=== PATIENT | male | born 1985 | race Caucasian/White ===

== ENCOUNTER 2020-11-04 20:12 | Emergency (ER) | payer SELFPAY ==
--- NOTE | ~2020-11-04 | XR_ITS ---
EXAMINATION: XR ANKLE, RIGHT CLINICAL INFORMATION: Pain status post trauma COMPARISON: None TECHNIQUE: AP, lateral, and mortise views of the right ankle. FINDINGS: The bones and soft tissues are normal. No fracture. Alignment is anatomic. Joint spaces are maintained. No joint effusion. XR/XR ankle RT min 3V IMPRESSION: Normal right ankle.
[2020-11-04 20:15] VITALS: BP 140/77; PULSE 77; RESP 18; TEMP 36.6; O2SAT 98; BMI 29.6
[2020-11-04] MEDS: Ibuprofen 600 MG TABLET PO (21:13)
--- NOTE | 2020-11-04 21:23 | ED.LOWEXIN ---
HPI - Extremity Injury (Lower) General Chief Complaint: Extremity Injury, Lower Stated Complaint: foot pain Time Seen by Provider: 11/04/20 21:17 Source: patient Mode of arrival: wheelchair Limitations: no limitations History of Present Illness HPI Narrative: Patient comes emergency room complaining right ankle pain. Patient states earlier today he was in [place] tr[place] park, missed a step, sprain and ankle. Patient has been unable to bear weight since then. Complaining of localized pain and swelling. Patient denies hitting his head, no loss of consciousness Related Data Previous Rx's Medication Instructions Recorded ibuprofen 800 mg PO TID PRN #10 tab 11/04/20 Allergies Allergy/AdvReac Type Severity Reaction Status Date / Time No Known Allergies Allergy Verified 11/04/20 21:33 seasonal Allergy Unknown Unknown Uncoded 11/04/20 21:33 Review of Systems Review of Systems: Constitutional : No Weight loss, No Fever, No Chills, No Night Sweats, No Fatigue, No Malaise ENT/Mouth : No Hearing loss, No Ear Pain, No Nasal Congestion, No Sinus Pain, No Hoarseness, No sore throat, No Rhinorrhea, No Swallowing Difficulty Eyes: No Eye Pain, No Swelling, No Redness, No Foreign Body, No Discharge, No Vision Changes Cardiovascular : No Chest Pain, No SOB, No Dyspnea on Exertion, No Orthopnea, No Edema, No Palpitations Respiratory : No Cough, No Sputum, No Wheezing, No Smoke Exposure, No Dyspnea Gastrointestinal : No Nausea, No Vomiting, No Diarrhea, No Constipation, No abdominal Pain, No Hematochezia, No Melena Genitourinary : no irregular bleeding, No Dysuria, No Urinary Frequency, No Hematuria, No Urinary Incontinence, No Urgency, No Flank Pain, No Urinary Flow Changes, No Hesitancy Musculoskeletal : Complaining of right ankle pain and swelling Skin : No Skin Lesions, No rash Neuro : No Weakness, No Numbness, No Paresthesias, No Loss of Consciousness, No Dizziness, No Headache Psych : No Anxiety/Panic, No Depression, No SI/HI/AH/VH, No Social Issues, Heme/Lymph: No Bruising, No Bleeding,No Lymphadenopathy Endocrine : No Polyuria, No Polydipsia, No Temperature Intolerance PMFSH Past Medical History Medical History No known health problems Surgical History History of appendectomy Social History Social History Advance Directives: No Advance Directives Information Provided: No Physical Exam Vital Signs: Vital Signs: Last Vital Signs Temp 98 F 11/04/20 20:15 Pulse 77 11/04/20 20:15 Resp 18 11/04/20 20:15 BP 140/77 H 11/04/20 20:15 Pulse Ox 98 11/04/20 20:15 Body Mass Index 29.6 Appearance: Alert. Oriented X3. No acute distress. Eyes: Pupils equal, round and reactive to light. ENT: Pharynx normal. Neck: Normal inspection. Neck supple. No lymph nodes noted. No crepitus CVS: Normal heart rate and rhythm. Pulses normal. Normal S1 and S2 Respiratory: No respiratory distress. Breath sounds normal. No Wheezing. No rales Abdomen: Soft and nontender. No rigidity. No distention. good BS x4 Skin: Skin warm and dry. Normal skin color. Normal skin turgor. Extremities: No lower extremity edema. Plus five palpable pedal pulses bilaterally, swelling on the lateral malleolus and pain to touch. Patient unable to bear weight. Neuro: Oriented X 3. No motor deficit. No sensory deficit. Moving all extermities. No slurred speech. Course Course Course Narrative: I discussed with the patient that he does not have a fracture, patient has likely a significant sprain. Patient instructed to follow-up with his primary care physician, patient also provided with the phone number for Orthopedics. Patient's foot was Ye[place] wrapped, provided with crutches. MDM - Extremity Injury (Lower) Imaging Data Right ankle x-ray: Radiologist's impression: The bones and soft tissues are normal. No fracture. Alignment is anatomic. Joint spaces are maintained. No joint effusion. XR/XR ankle RT min 3V IMPRESSION: Normal right ankle. Discharge Plan Discharge Clinical Impression: Ankle sprain and strain Patient Disposition: Home, Self-Care Instructions: Ankle Sprain (ED) Additional Instructions: Apply ice to your ankle for 15 minutes every 2 hours while you are awake. Actually ice is not in direct contact with the skin. Please follow-up with your PCP and Orthopedics Prescriptions: New ibuprofen 800 mg tablet 800 mg PO TID PRN (Reason: pain) Qty: 10 RF: 0 Referrals: Fay Zimmer PA-C [Physician Sewing Machine Maintenance Mechanic] - 2 days
--- NOTE | 2020-11-04 21:35 | PC.NURSE ---
PT EVALED BY DR RAYMOND.
--- NOTE | 2020-11-04 21:52 | PC.NURSE ---
POSTERIOR SHORT LEG SPLINT APPLIED TO R FOOT.
== END 2020-11-04 22:13 | disposition home or self-care (01) ==
PROVIDERS: Emergency Provider Emergency Medicine
DX: S93.401A Sprain of unspecified ligament of right ankle, initial encounter (principal); V00.118A Other in-line roller-skate accident, initial encounter; M25.571 Pain in right ankle and joints of right foot; Y93.44 Activity, trampolining; Y92.9 Unspecified place or not applicable; Y99.8 Other external cause status
CPT/HCPCS: 73610; 99283

== ENCOUNTER → 2020-11-12 12:30 | Outpatient (BNVA) | payer SELFPAY | PROVIDERS: Visit Provider Physician Assistant | DX: S93.401A Sprain of unspecified ligament of right ankle, initial encounter (principal) | CPT/HCPCS: 99202 ==

== ENCOUNTER 2020-11-20 11:29 | Outpatient (REF) | payer SELFPAY ==
--- NOTE | ~2020-11-20 | XR_ITS ---
EXAMINATION: Right elbow and right wrist x-ray CLINICAL INFORMATION: Pain and right hand COMPARISON: None TECHNIQUE: AP, lateral, and oblique views of the right elbow. 4 views right wrist FINDINGS: Right elbow: There is no visible acute fracture, dislocation or subluxation seen. No bony erosive changes. The soft tissues are normal. Right wrist: There is no visible acute fracture, dislocation or subluxation. No bony erosive changes seen. There is no fracture involving the scaphoid bone either. XR/XR elbow RT min 3V IMPRESSION: Unremarkable right elbow and unremarkable right wrist
--- NOTE | ~2020-11-20 | XR_ITS ---
EXAMINATION: Right elbow and right wrist x-ray CLINICAL INFORMATION: Pain and right hand COMPARISON: None TECHNIQUE: AP, lateral, and oblique views of the right elbow. 4 views right wrist FINDINGS: Right elbow: There is no visible acute fracture, dislocation or subluxation seen. No bony erosive changes. The soft tissues are normal. Right wrist: There is no visible acute fracture, dislocation or subluxation. No bony erosive changes seen. There is no fracture involving the scaphoid bone either. XR/XR wrist RT w scaphoid IMPRESSION: Unremarkable right elbow and unremarkable right wrist
== END 2020-11-20 11:30 | disposition home or self-care (01) ==
LOC: HO.HOSX 11:29
PROVIDERS: Visit Provider Orthopaedic Surgery
DX: M25.531 Pain in right wrist (principal); M25.521 Pain in right elbow; M77.11 Lateral epicondylitis, right elbow
CPT/HCPCS: 73080; 73110; 99202

== ENCOUNTER 2022-10-26 15:11 | Emergency (ER) | payer BC, SELFPAY ==
--- NOTE | ~2022-10-26 | XR_ITS ---
EXAMINATION: XR ELBOW, RIGHT CLINICAL INFORMATION: Pain COMPARISON: None available. TECHNIQUE: AP, lateral, and oblique views of the right elbow. FINDINGS: The bones and soft tissues are normal. No fracture or joint effusion. Alignment is anatomic. Joint spaces are maintained. XR/XR elbow RT min 3V IMPRESSION: No fracture or dislocation. MRI could be utilized to assess for possible soft tissue derangements if clinically indicated.
[2022-10-26 16:03] VITALS: BP 136/75; PULSE 59; RESP 18; TEMP 37; O2SAT 97; BMI 27.3
--- NOTE | 2022-10-26 18:55 | PC.NURSE ---
pt fully ambulatory to exam room awaiting provider
--- NOTE | 2022-10-26 18:56 | ED_ITS ---
HPI - Extremity Problem General Chief complaint: Extremity Injury, Upper Stated complaint: right arm injury playing baseball Time Seen by Provider: 10/26/22 18:56 Source: patient Mode of arrival: ambulatory Limitations: no limitations History of Present Illness HPI Narrative: Patient complaining of pain in right elbow in the medial aspect after playing baseball yesterday felt like his elbow popped but now it is back to normal but having the pain specially on the medial aspect, no other injury Related Data Previous Rx's Medication Instructions Recorded ibuprofen 800 mg tablet 800 mg PO TID PRN pain #10 tabs 11/04/20 ibuprofen 600 mg tablet 600 mg PO Q6H PRN fever or pain 10/26/22 #30 tabs Allergies Allergy/AdvReac Type Severity Reaction Status Date / Time No Known Allergies Allergy Verified 10/26/22 16:03 seasonal Allergy Unknown Unknown Uncoded 11/20/20 13:03 Review of Systems Review of Systems: Yes all other systems are reviewed and are negative PMFSH Past Medical History Medical History No known health problems Surgical History History of appendectomy Social History Social History Current occupational status: unemployed 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 Tenderness in medial epicondyle area increases on wrist flexion Medical Decision Making Medical Decision Making MDM Narrative: Patient clinically with medial epicondylitis x-ray negative discharge patient home with sling and ibuprofen Discharge Plan Discharge Clinical Impression: Medial epicondylitis of right elbow Patient Disposition: Home, Self-Care Instructions: Elbow Sprain (ED) Additional Instructions: Rest the right elbow,wear the sling and use elbow brace Ibuprofen for pain Prescriptions: New ibuprofen 600 mg tablet 600 mg PO Q6H PRN (Reason: fever or pain) Qty: 30 0RF No Action ibuprofen 800 mg tablet 800 mg PO TID PRN (Reason: pain) Qty: 10 0RF Stand Alone Forms: Work/School Release
[2022-10-26] MEDS: Ibuprofen 600 MG TABLET PO (19:25)
== END 2022-10-26 20:22 | disposition home or self-care (01) ==
PROVIDERS: Emergency Provider Internal Medicine
DX: M77.01 Medial epicondylitis, right elbow (principal); M25.521 Pain in right elbow
CPT/HCPCS: 73080; 99283

== ENCOUNTER 2022-12-11 16:37 | Emergency (ER) | payer BC, SELFPAY ==
[2022-12-11 16:44] VITALS: BP 124/69; PULSE 58; RESP 18; TEMP 36.9; O2SAT 97; BMI 28.1
--- NOTE | 2022-12-11 16:48 | ED_ITS ---
HPI - Eye Problem General Chief complaint: Eye Problems Stated complaint: left eye redness and swelling Related Data Previous Rx's Medication Instructions Recorded ibuprofen 800 mg tablet 800 mg PO TID PRN pain #10 tabs 11/04/20 ibuprofen 600 mg tablet 600 mg PO Q6H PRN fever or pain 10/26/22 #30 tabs Allergies Allergy/AdvReac Type Severity Reaction Status Date / Time No Known Allergies Allergy Verified 10/26/22 16:03 seasonal Allergy Unknown Unknown Uncoded 11/20/20 13:03 PMFSH Past Medical History Medical History No known health problems Surgical History History of appendectomy Social History Social History Advance Directives: No Advance Directives Information Provided: No Current occupational status: unemployed 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 Deferred additional HPI, ROS, PE to primary provider. 37 yo male healthy, does not use contacts/glasses here with left eye redness/swelling, irritation/itching today. Unsure if there was anything in the eye as he had a FB sensation. No vision changes. Will need eye exam. VSS Discharge Plan Discharge Clinical Impression: Acute eye pain Patient Disposition: Elopement Prescriptions: No Action ibuprofen 800 mg tablet 800 mg PO TID PRN (Reason: pain) Qty: 10 0RF ibuprofen 600 mg tablet 600 mg PO Q6H PRN (Reason: fever or pain) Qty: 30 0RF Interventions: ED Discharge Assessment Last Done: 12/11/22 21:46 Discharge Date/Time: 12/11/22 21:46
== END 2022-12-11 21:46 | disposition left against medical advice (07) ==
PROVIDERS: Emergency Provider Emergency Medicine
DX: H57.12 Ocular pain, left eye (principal)
CPT/HCPCS: 99282

== ENCOUNTER 2024-01-14 07:23 | Emergency (ER) | payer BC, SELFPAY ==
--- NOTE | ~2024-01-14 | XR_ITS ---
EXAMINATION: XR KNEE, RIGHT CLINICAL INFORMATION: Knee pain COMPARISON: None available. TECHNIQUE: Four views of the right knee. FINDINGS: No fracture or joint effusion. Alignment is anatomic. Joint spaces are maintained. On the AP view, there is a small 2.7 mm calcified opacity seen ejecting just on top of the medial tibial tubercle. No chondrocalcinosis. XR/XR knee RT 3V IMPRESSION: 1. No acute fracture or dislocation. 2. Small 2.7 mm calcified opacity seen ejecting just on top of the medial tibial tubercle. This may represent a small intra-articular free osseous body.
[2024-01-14 07:26] VITALS: BP 144/69; PULSE 55; RESP 19; O2SAT 99; BMI 27.3
[2024-01-14 07:59] VITALS: BP 135/66; PULSE 52; RESP 14; TEMP 36.5; O2SAT 100
--- NOTE | 2024-01-14 08:13 | ED.GENADULT ---
HPI - General Adult General Chief complaint: Extremity Injury, Lower Stated complaint: r knee inj Time Seen by Provider: 01/14/24 08:12 Source: patient Mode of arrival: ambulatory Limitations: no limitations History of Present Illness ED Provider: Misa Carrasquillo PA-C HPI narrative: Patient is a 38 year old assigned male at with no reported medical history presenting to the emergency department today with right knee pain. Patient states that yesterday he slid playing baseball and he felt a large pop in his right knee. Patient states that the inside portion of his knee hurts the most. Patient denies any dizziness, lightheadedness, abdominal pain, nausea, vomiting, fever, chills, blurry vision, double vision, loss of vision, chest pain, difficulty breathing, shortness of breath, back pain, night sweats, pain with urination, increased urinary frequency, increased urinary urgency, blood in his urine or stool, syncope or a near syncopal episode, bowel incontinence, bladder incontinence, or any other complaints at this time. Onset (ago): day(s) (1) Location: right and lower extremity Radiation: non-radiation Severity: mild Severity scale (1-10): 3 Quality: aching and dull Pain Consistency: constant Relieving factors: none Exacerbating factors: none Associated symptoms: denies other symptoms Treatments prior to arrival: none Related Data Previous Rx's ?Medication ?Instructions ?Recorded ibuprofen 800 mg tablet 800 mg PO TID PRN pain #10 tabs 11/04/20 ibuprofen 600 mg tablet 600 mg PO Q6H PRN fever or pain 10/26/22 #30 tabs Allergies Allergy/AdvReac Type Severity Reaction Status Date / Time No Known Allergies Allergy Verified 01/14/24 07:27 seasonal Allergy Unknown Unknown Uncoded 01/14/24 07:27 Review of Systems Constitutional: Constitutional: Reports no additional constitutional complaints, Denies chills, Denies fever(s) and Denies night sweats Eyes: Eyes: Reports no additional eye complaints, Denies blurry vision, Denies change in vision, Denies diplopia, Denies eye discharge, Denies loss of vision and Denies eye pain ENT: Denies dizziness Cardiovascular: Cardiovascular: Reports no additional cardiovascular complaints, Denies chest pain, Denies lightheadedness, Denies Loss of Consciousness and Denies dyspnea Respiratory: Respiratory: Reports no additional respiratory complaints and Denies dyspnea Gastrointestinal: Gastrointestinal: Reports no additional gastrointestinal complaints, Denies abdominal pain, Denies melena, Denies hematochezia, Denies change in bowel habits and Denies change in stool character Genitourinary: Genitourinary: Reports no additional male genitourinary complaints, Denies hematuria, Denies oliguria, Denies difficulty urinating, Denies dysuria, Denies urinary frequency, Denies urinary hesitancy, Denies urinary incontinence and Denies urinary urgency Musculoskeletal: Musculoskeletal: Reports no additional musculoskeletal complaints, Denies numbness and Denies tingling Comments: right knee pain Neurologic: Denies dizziness, Denies loss of vision, Denies numbness and Denies tingling Psychiatric: Psychiatric: Reports no additional psychiatric complaints Endocrine: Endocrine: Reports no additional endocrine complaints Hematologic/Lymphatic: Hematologic/Lymphatic: Reports no additional hematologic/lymphatic complaints Allergic/Immunologic: Allergic/Immunologic: Reports no additional allergic/immunologic complaints PMFSH Past Medical History Attestation statement: The following information was validated with the patient. 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 Physical Exam ED Vital Signs: Vital Signs - 24 hr 01/14/24 07:26 01/14/24 07:59 01/14/24 10:33 Temperature 97.7 F 97.8 F Pulse Rate 55 52 56 Respiratory Rate 19 14 16 Blood Pressure 144/69 H 135/66 136/76 Pulse Oximetry 99 100 100 Oxygen Delivery Method Room Air Room Air Room Air BMI result Body Mass Index 27.3 Const General: cooperative, no acute distress, alert and awake Nutritional Appearance: well nourished Orientation/consciousness: patient oriented x3 Limitations: no limitations HENMT Head: Yes normal to inspection and Yes atraumatic Ears: hearing grossly normal bilaterally and external ears normal General nose exam: Normal external nose present, no nasal discharge noted and no epistaxis Face and sinus: Yes normal facial exam, No abrasion and No laceration Mouth: Normal oral and palatal mucosa present, no drooling and no muffled voice Eyes General: appearance normal, both eyes and all related structures Periorbital: periorbital findings normal Eyelids: Yes eyelids normal Conjunctivae: conjunctivae normal Pupils: Equal, round and reactive pupils present EOM: EOMs intact bilaterally Neck Neck: Yes normal visual inspection, Yes full ROM and Yes no lymphadenopathy Chest Chest palpation & inspection: normal inspection of the chest Resp Effort & Inspection: normal respiratory effort and able to speak in complete sentences GI Inspection: Yes normal to inspection Neuro General: patient oriented x3 and moves all extremities Cranial nerves: Yes Equal, round and reactive pupils present Cognition (Neuro): normal cognition Motor exam (neuro): 5/5 motor strength present throughout Sensory Exam: Normal double simultaneous stimulation for sensation Coordination: [id number] test normal Extrem Other: pain in the right knee with the valgus test, all other special tests normal General: Yes normal to inspection, Yes full ROM and Yes capillary refill normal Psych Appearance: grossly normal Mental Status: mental status grossly normal Affect: normal affect Attitude: cooperative Thought process: Normal thought process present Thought content: Normal thought content present Insight: Good insight present (Psych) Medications Administered Discontinued Medications Generic Name Dose Route Start Last Admin Trade Name Freq PRN Reason Stop Dose Admin Ketorolac Tromethamine 15 mg 01/14/24 09:07 01/14/24 09:15 Ketorolac Tromethamine 15 Mg/Ml Vial IM 01/14/24 09:08 Not Given ONCE ONE Procedures Orthopedic Splinting/Casting Injury #1: Side: right Lower Extremity Injury Location: knee Lower Extremity Immobilizer: knee immobilizer Other Orthopedic Equipment: crutches Medical Decision Making Medical Decision Making [facility] Narrative: Patient is a 38 year old assigned male at with no reported medical history presenting to the emergency department today with right knee pain. Patient's physical exam was as noted in the physical exam portion of this note. Patient's right knee x-ray showed no acute process. Patient's physical exam is concerning for a right MCL injury. I explained my physical exam findings as well as all test results to the patient. I answered all questions asked by the patient. Patient's right knee was placed in a knee immobilizer without incident. Patient's PMS was intact prior to and after knee immbolizer was placed. Patient was given crutches with crutch instructions. I stressed the importance of the patient taking his medication as directed (either prescribed or as the over the counter packaging recommends). I stressed the importance of the patient following up with his primary care provider and an orthopedic provider. I stressed the importance of the patient returning to the emergency department immediately if his symptoms were to worsen or if he were to develop any dizziness, shortness of breath, difficulty breathing, chest pain, blurry vision, loss of vision, nausea, vomiting, abdominal pain, fever, chills, back pain, or any other complaints. Patient verbalized agreement and understanding with this treatment plan and discharge. Differential Diagnosis Differential Diagnoses: The differential diagnosis associated with the presentation includes MCL injury Knee sprain Knee strain Knee pain Admission/Observation Consideration of admission/observation: Escalation of care including admission/observation considered Patient would have been admitted to the hospital had his work up had any findings where hospital admission was appropriate and his clinical presentation warranted hospital admission. Independent Interpretation I performed an independent interpretation of an: Plain X-Ray Interpretation: My interpretation is in agreement with the radiologist's impression of this imaging study. EXAMINATION: XR KNEE, RIGHT CLINICAL INFORMATION: Knee pain COMPARISON: None available. TECHNIQUE: Four views of the right knee. FINDINGS: No fracture or joint effusion. Alignment is anatomic. Joint spaces are maintained. On the AP view, there is a small 2.7 mm calcified opacity seen ejecting just on top of the medial tibial tubercle. No chondrocalcinosis. XR/XR knee RT 3V IMPRESSION: 1. No acute fracture or dislocation. 2. Small 2.7 mm calcified opacity seen ejecting just on top of the medial tibial tubercle. This may represent a small intra-articular free osseous body. Dictated By: Rishabh Ramirez MD Signed By: Electronically signed by Rishabh Ramirez MD 01/14/24 1007 Radiology Impression Discussion of test interpretation with radiology: I have reviewed the radiologist's reading. Discharge Plan Discharge Clinical Impression: Knee sprain Patient Disposition: Home, Self-Care Instructions: Knee Sprain (DC) Additional Instructions: Your x-ray did not show any break/fracture. However, I am concerned you may have injured your right MCL. Follow up with your primary care provider and an orthopedic provider. Return to the emergency department immediately if your symptoms worsen or if you develop any dizziness, shortness of breath, difficulty breathing, chest pain, blurry vision, loss of vision, nausea, vomiting, abdominal pain, fever, chills, back pain, or any other complaints. Prescriptions: No Action ibuprofen 800 mg tablet 800 mg PO TID PRN (Reason: pain) Qty: 10 0RF ibuprofen 600 mg tablet 600 mg PO Q6H PRN (Reason: fever or pain) Qty: 30 0RF Referrals: [facility] [place] Family Medicine [Provider Group] (Call to establish and follow up with a primary care provider. If you already have a primary care provider, please follow up with them.) [facility] [place] [facility] [Provider Group] [facility] [place] [facility] [Provider Group] [facility] [Provider Group] (Call to establish and follow up with an orthopedic provider. ) Stand Alone Forms: Work/School Release Discharge Date/Time: 01/14/24 10:33 Print Language: Honduran
--- NOTE | 2024-01-14 09:16 | PC.NURSE ---
patient refused toradol injection for pain
--- NOTE | 2024-01-14 09:51 | PC.NURSE ---
patient tolerated crutches training and knee immobilizer
[2024-01-14 10:33] VITALS: BP 136/76; PULSE 56; RESP 16; TEMP 36.6; O2SAT 100
== END 2024-01-14 10:33 | disposition home or self-care (01) ==
PROVIDERS: Emergency Provider Emergency Medicine
DX: S83.91XA Sprain of unspecified site of right knee, initial encounter (principal); X50.9XXA Other and unspecified overexertion or strenuous movements or postures, initial encounter; M25.561 Pain in right knee; Y93.64 Activity, baseball; Y92.39 Other specified sports and athletic area as the place of occurrence of the external cause; Y99.9 Unspecified external cause status
CPT/HCPCS: 73562; 99283

== ENCOUNTER 2024-01-15 14:47 | Emergency (ER) | payer BC, SELFPAY ==
[2024-01-15 14:52] VITALS: BP 134/56; PULSE 70; RESP 15; TEMP 36.3; O2SAT 97; BMI 27.4
--- NOTE | 2024-01-15 14:54 | ED_ITS ---
HPI - General Adult General Chief complaint: Recheck/Abnormal Lab/Rx Stated complaint: recheck r leg Time Seen by Provider: 01/15/24 15:52 Source: patient Mode of arrival: ambulatory Limitations: no limitations History of Present Illness ED Provider: Jeri LORENZO HPI narrative: 38-year-old male presents with right knee pain, patient reports that on 01/14/2024 he sustained a fall while playing baseball, slid into a base, since then has been having right knee pain, swelling. Pain is worse with movement, weight-bearing and range of motion better at rest. No numbness or tingling. Does report worsening pain. Reports the reason he came today as he received a phone call from the hospital, they spoke to him about his injury and they told him if his pain is worsening he should seek further intervention and this is why he came in. He has an appointment scheduled with Orthopedics on 01/26/2024 however he does not feel like he can wait that long secondary to pain. Pain is 10/10. Reports ibuprofen is not helping. Reports he does not do well with Toradol. Denies new injury, numbness, tingling, fevers, chills, nausea, vomiting, abdominal pain home chest pain and shortness of breath. Related Data Previous Rx's ?Medication ?Instructions ?Recorded ibuprofen 800 mg tablet 800 mg PO TID PRN pain #10 tabs 11/04/20 ibuprofen 600 mg tablet 600 mg PO Q6H PRN fever or pain 10/26/22 #30 tabs morphine 15 mg immediate release 15 mg PO Q6H PRN pain 5 days #10 01/15/24 tablet tabs Allergies Allergy/AdvReac Type Severity Reaction Status Date / Time No Known Allergies Allergy Verified 01/15/24 14:57 seasonal Allergy Unknown Unknown Uncoded 01/14/24 07:27 Review of Systems Review of Systems: Yes all other systems are reviewed and are negative PMFSH Past Medical History Attestation statement: The following information was validated with the patient. 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 Oriented X3.? No acute distress.? Head: Normocephalic, atraumatic, no step-offs or deformities Eyes: Pupils equal, round and reactive to light.? Neck: Normal inspection.? Neck supple.? CVS: ? Pulses normal.? Respiratory: No respiratory distress.? Skin: Skin warm and dry.? Normal skin color.? Normal skin turgor.? Extremities: No lower extremity edema.? No calf ttp. 5/5 strength to bilateral upper and lower extremities 2+ DP, popliteal, at, pt pulsese equal and b/l. Normal distal sensation. + Valgus & Varus and discomfort w/ anetior and posterior drawer on the right. Negative on the left for all previously listed. Negative Mcmurrays b/l. Patient amulating w/ crutches. No foot drop. Mild edema to r knee no ecchymosis. Back: No midline tenderness, no C-spine tenderness, full range of motion, no CVA tenderness bilaterally Neuro: Oriented X 3.? No motor deficit.? No sensory deficit. CN 2-12 intact Course Course Course Narrative: RME performed by Misa Carrasquillo PA-C. Patient is a 38 year old assigned male at presenting to the emergency department with right leg pain. Patient states he injured his knee yesterday, was put in an immobilizer, and called and told he should come back and be re-evaluated. Detailed physical exam and review of systems are deferred to the community engagement representative. Patient placed back in the waiting room pending room availability. Reevaluation(s) Reevaluation #1: Discussed this case w/ ortho who will call patient for a sooner apt. Patient verbalizes understanding of this. Safe narcotic instructions discussed w/ patient on discharge. Educated patient on diagnosis and treatment plan, answered all question, patient verbalizes understanding. At this time patient will be discharged home, advised to return with new or worsening symptoms. Educated on worrisome signs and symptoms and when to return. At this time I feel comfortable discharge home. Medical Decision Making Medical Decision Making MDM Narrative: 38 yo m presents w/ r knee pain pe No lower extremity edema.? No calf ttp. 5/5 strength to bilateral upper and lower extremities 2+ DP, popliteal, at, pt pulsese equal and b/l. Normal distal sensation. + Valgus & Varus and discomfort w/ anetior and posterior drawer on the right. Negative on the left for all previously listed. Negative Mcmurrays b/l. Patient amulating w/ crutches. No foot drop. Mild edema to r knee no ecchymosis. Hx and pe concerning for ligament or tendon injury. Unlikely fx/ dislocation, nv compromise, threat to limb, compartment syndrome Plan- pain control and ortho follow up. Differential Diagnosis Differential Diagnoses: The differential diagnosis associated with the pres entation includes Hx and pe concerning for ligament or tendon injury. Unlikely fx/ dislocation, nv compromise, threat to limb, compartment syndrome Admission/Observation Consideration of admission/observation: Escalation of care including admission/observation considered Consult Healthcare Provider Management of the patient was discussed with: Seal Extrusion Operator (Ortho ) Independent Interpretation I performed an independent interpretation of an: Plain X-Ray (XR/XR knee RT 3V IMPRESSION: 1. No acute fracture or dislocation. 2. Small 2.7 mm calcified opacity seen ejecting just on top of the medial tibial tubercle. This may repre sent a small intra-articular free osseous body.) Radiology Impression Discussion of test interpretation with radiology: I have reviewed the radiologist's reading. External Record Review External record reviewed: Outpatient record and Prior outpatient radiology Prescription Management I considered prescription management with: Pain Medication (morphine ) Chronic Conditions Patient?s care impacted by: Other (r knee injury on 01/14/24) Critical Care Time Critical Care Time Critical Care Time: No Discharge Plan Discharge Clinical Impression: Strain of right knee Patient Disposition: Home, Self-Care Instructions: Crutch Instructions (ED) Additional Instructions: Take your medications as prescribed. If you were prescribed antibiotics today, it is important that you take your medication to their entirety, do not skip any doses, do not finish them early. Follow-up with your primary care provider this week. Return to the emergency department with new or worsening symptoms. In case of emergency call 911 Follow up with orthopedics as soon as possible, you should get a call from them within the next day or two to try to get a sooner apt. A narcotic has been sent to your pharmacy please take this as prescribed. Do not take more than the prescribed dose. Narcotic medications can cause addiction. Please do not mix them with alcohol. Do not take them while driving or operating machinery. Do not take them with any other narcotics. Do not share them with friends or family. They can cause constipation. Take them only for severe pain. Prescriptions: New morphine 15 mg tablet 15 mg PO Q6H PRN (Reason: pain) 5 Days Qty: 10 0RF Rx Instructions: Partial Fill upon patient request. No Action ibuprofen 800 mg tablet 800 mg PO TID PRN (Reason: pain) Qty: 10 0RF ibuprofen 600 mg tablet 600 mg PO Q6H PRN (Reason: fever or pain) Qty: 30 0RF Referrals: Physician,Unknown J [Primary Care Provider] - 2 days Stand Alone Forms: Work/School Release Print Language: Kazakh
[2024-01-15 15:32] VITALS: BP 123/67; PULSE 66; RESP 18; TEMP 36.6; O2SAT 98
--- OUTSIDE RECORDS SUMMARY | 2024-01-15 15:35 | XMS_ITS | Continuity of Care Document ---
Author Organization [facility] Adult Address [address] [place] [address]- Care Team Providers Care Social Organization Professor Name Role Phone Sheila ROMERO, Anastacio Pope Primary Care Physician Encounter [facility] [place] Date(s): 09/05/21 - 10/13/21 [facility] Adult [address] [place] [address]- Attending Physician: Elmer ATKINS, Claudia Doss Referring Physician: Anastacio Sosa MD Allergies, Adverse Reactions, Alerts No Known Allergies Immunizations Given and Recorded Vaccine Date Status Refusal Reason tetanus-diphtheria toxoids (Td) 12/20/16 Recorded Social History Social History Type Response Smoking Status Current every day sm oker; Tobacco user in household: Yes; Type: Cigarettes; Tobacco use times per day: takes drags daily since age 13; entered on: 04/12/15 Sex
--- OUTSIDE RECORDS SUMMARY | 2024-01-15 15:35 | XMS_ITS | Continuity of Care Document ---
Author Organization [facility] Address [address] [place] [address]- Care Team Providers Care Floral Artist Name Role Phone Not on Staff, PCP Primary Care Physician Unavail able Encounter [facility] [place] [facility] Date(s): 11/06/23 - 12/06/[address] [address]- Attending Physician: Miriam Porter Admitting Physician: Miriam Porter Referring Physician: AdmtrMiriam Allergies, Adverse Reactions, Alerts No Known Allergies Immunizations Given and Recorded Vaccine Date Status Refusal Reason tetanus-diphtheria toxoids (Td) 12/20/16 Recorded Medications Ibuprofen 600 mg, Refills 0, Maintenance, 11/19/22 16:27:00 EDT, Partial fill upon patient request if the prescription is for a schedule II opioid drug. Start Date: 11/19/22 Status: Ordered oxyCODONE 5 mg oral tablet See Instructions, PRN, 1-2 tablet By Mouth 4-6 hours, Refills 0, Tot. Refills 0, Acute, Pain , Moderate, 11/21/22 9:30:00 EDT, Instructions Replace Required Details, Partial fill upon patient requestif the prescription is for a schedule II opioid drug. Start Date: 11/21/22 Status: Ordered Social History Social History Type Response Smoking Status Current every day sm oker; Tobacco user in household: Yes; Type: Cigarettes; Tobacco use times per day: takes drags daily since age 13; entered on: 04/12/15 Sex Patient Care team information Care Team Personnel Name: Not on Staff, PCP Position: S Physician (General Medicine) Member Role: PCP Care Team Related Persons Name: TRACY ALEXANDER Address: [place] [address] Name: THERESA LISET Address: home [address] [place] [address]
--- OUTSIDE RECORDS SUMMARY | 2024-01-15 15:35 | XMS_ITS | Continuity of Care Document ---
Author Organization [facility] Adult Address [address] [place] [address]- Care Team Providers Care Manager Commercial Real Estate Name Role Phone Jimbo ATKINS, More Aponte Primary Care Physician [id number] Date(s): 10/27/22 - 11/26/22 [facility] Adult [address] [place] [address]- Allergies, Adverse Reactions, Alerts No Known Allergies Immunizations Given and Recorded Vaccine Date Status Refusal Reason tetanus-diphtheria toxoids (Td) 12/20/16 Recorded Medications Ibuprofen 600 mg, Refills 0, Maintenance, 11/19/22 16:27:00 EDT, Partial fill upon patient request if the prescription is for a schedule II opioid drug. Start Date: 11/19/22 Status: Ordered ibuprofen 800 mg oral tablet 800 mg, 1, tablet, By Mouth, 3 times a day, for 30 days, # 90 tablet, Refills 0, Tot. Refills 0, Acute 12/21/22 9:38:00 EDT, 11/21/22 9:38:00 EDT, Route to Pharmacy Electronically, [facility]/pharmacy #[id number], Partial fill upon patient request if the prescript... Start Date: 11/21/22 Stop Date: 12/21/22 Status: Ordered oxyCODONE 5 mg oral tablet [...] Care team information Care Team Personnel Name: Jimbo ATKINS, More Aponte Position: S PCO Associate Professional Member Role: PCP Address: Address: [address] [place] [address] [address] [place] [address]- Care Team Related Persons Name: TRACY ALEXANDER Address: [place] [address] Name: LISET CARDENAS Address: [place] [address]
--- OUTSIDE RECORDS SUMMARY | 2024-01-15 15:35 | XMS_ITS | Continuity of Care Document ---
Author Organization [facility] Adult Address [address] [place] [address]- Care Team Providers Care Passementerie Worker Name Role Phone More Choi NP Primary Care Physician [phone] Encounter [facility] R [id number] Date(s): 12/05/22 - 01/22/[address] [address]- [place] Attending Physician: Claudia Payne NP Allergies, Adverse Reactions, Alerts No Known Allergies [...] Care team information Care Team Personnel Name: More Choi NP Position: S PCO Associate Professional Member Role: PCP Address: Address: [address] [place] [address] [address] [place] [address]- Care Team Related Persons Name: TRACY ALEXANDER Address: [place] [address] Name: LISET CARDENAS Address: [place] [address]
--- OUTSIDE RECORDS SUMMARY | 2024-01-15 15:35 | XMS_ITS | Continuity of Care Document ---
Author Organization [facility] Adult Address [address] [place] [address]- Care Team Providers Care Rice Milling Supervisor Name Role Phone Sheila ROMERO, Anastacio Pope Primary Care Physician Encounter [facility] Date(s): 08/21/21 - 09/29/21 [facility] [address] [place] [address]- Attending Physician: Elmer ATKINS, Claudia Doss Allergies, Adverse Reactions, Alerts No Known Allergies Immunizations Given and Recorded Vaccine Date Status Refusal Reason tetanus-diphtheria toxoids (Td) 12/20/16 Recorded Social History Social History Type Response Smoking Status Current every day sm oker; Tobacco user in household: Yes; Type: Cigarettes; Tobacco use times per day: takes drags daily since age 13; entered on: 04/12/15 Sex
--- OUTSIDE RECORDS SUMMARY | 2024-01-15 15:35 | XMS_ITS | Continuity of Care Document ---
Author Organization [facility] Address [address] [place] [address]- Care Team Providers Care Sugar Cane Planting Equipment Operator Name Role Phone Not on Staff, PCP Primary Care Physician Unavail able Encounter [facility] Date(s): 09/02/23 - 12/06/[address] [address]- Attending Physician: Not on Staff, Attending MD Referring Physician: Kiana Mclaughlin MD Allergies, Adverse Reactions, Alerts No Known [...] Persons Name: TRACY ALEXANDER Address: [place] [address] Name: LISET CARDENAS Address: home [address] [place] [address]
--- OUTSIDE RECORDS SUMMARY | 2024-01-15 15:35 | XMS_ITS | Continuity of Care Document ---
Author Organization [facility] Address [address] [place] [address]- Care Team Providers Care Laborer Gold Leaf Name Role Phone More Choi NP Primary Care Physician Encounter [facility] [place] Date(s): 12/23/22 - 01/22/[address] [id number]- [place] Attending Physician: Miriam Porter Admitting Physician: Miriam [...] Associate Professional Member Role: PCP Address: Address: [address] [place] [address] Care Team Related Persons Name: TRACY ALEXANDER Address: [place] [address] Name: LISET CARDENAS Address: [place] [address]
--- OUTSIDE RECORDS SUMMARY | 2024-01-15 15:35 | XMS_ITS | Continuity of Care Document ---
Author Organization [facility] Address [address] [place] [address]- Care Team Providers Care Cruise Director Name Role Phone Jimbo ATKINS, More Aponte Primary Care Physician [place] [facility] 10/31/22 - 11/30/22 [facility] [address] [place] [address]- Allergies, Adverse Reactions, Alerts No Known Allergies [...] 11/21/22 9:38:00 EDT, Route to Pharmacy Electronically, [facility]/pharmacy #[id number], Partial fill upon patient request if the [...] Professional Member Role: PCP Address: Address: [address] [place] [address] [address] [place] [address]- Care Team Related Persons Name: TRACY ALEXANDER Address: [place] [address] Name: LISET CARDENAS Address: [place] [address]
--- OUTSIDE RECORDS SUMMARY | 2024-01-15 15:35 | XMS_ITS | Continuity of Care Document ---
Author Organization [facility] Adult Address [address] [place] [address]- Care Team Providers Care Cop Breaker Name Role Phone Sheila ROMERO, Anastacio Pope Primary Care Physician Encounter [facility] [place] [place] Date(s): 09/13/21 - 10/13/[address] [facility] Adult [address] [place] [address]- Attending Physician: Miriam Porter Admitting Physician: Miriam [...]
[2024-01-15 16:32] VITALS: BP 000/00; PULSE 0; RESP 0; TEMP -17.7; TEMP 0; O2SAT 0
== END 2024-01-15 16:34 | disposition home or self-care (01) ==
PROVIDERS: Emergency Provider Emergency Medicine
DX: M25.561 Pain in right knee (principal)
CPT/HCPCS: 99282

== ENCOUNTER 2024-01-18 12:43 | Outpatient (AMB) | payer BC, SELFPAY ==
--- NOTE | 2024-01-18 12:47 | MHC.OFFVIS ---
Vital Signs 01/18/24 12:51 Height 5 ft 8 in Weight 180 lb BMI 27.4 Intake Visit Reasons: N/P Strain of right knee Intake Note: Arnie is a 38 year old male who presents today as a new patient with complaints of right knee pain. On 01/13/24 he slid while playing baseball and felt a pop in the right knee. He explains that his leg collapsed medially with intense pain on the medial aspect of the knee. He is unable to weight bear and has been on crutched. Denies numbness and tingling. He will mary a work note today. Allergies No Known Allergies Allergy (Verified 01/18/24 12:53) seasonal Allergy (Unknown, Uncoded 01/18/24 12:53) Unknown HPI HPI N/P Strain of right knee: Details: Patient is a 38-year-old male who presents with right knee pain. The patient reports that, on 01/13/24, while playing baseball, he attempted to slide into 1st base and felt a popping sensation in his right knee when his leg twisted. The patient reports that at that time, his pain was not bad, so he continued to play baseball, but he noticed that his pain was continuing to worsen, so he presented to the emergency department on 01/14/2024, where he was provided with crutches and a knee immobilizer to be used until orthopedic evaluation. Today, the patient reports that while his knee does not hurt a lot while at rest, he is currently toe-touch weight-bearing due to pain and is using his crutches at all times. Patient does not report swelling in his knee. Denies locking or catching. 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 Review of Systems Const All systems reviewed & are unremarkable except as noted in HPI and below Physical Exam Vital Signs: BMI result Body Mass Index 27.4 Const Other: Patient is alert, oriented, cooperative, and in no acute distress HEENT Head: Yes normocephalic and Yes atraumatic Resp Effort & Inspection: normal respiratory effort and able to speak in complete sentences Cardio Jugular venous distension: no JVD Neuro General: gait normal Cognition (Neuro): normal cognition Extrem Other: Patient's right knee normal to inspection No edema, erythema, or evidence of infection Patient reports pain to palpation to the medial joint line and medial aspect of his right knee. No pain to palpation to the proximal, distal, or lateral aspect of the right knee No ligamentous laxity noted on varus, valgus, anterior and posterior drawer testing Positive Katie's in the medial right knee Patient is able to extend the knee to approximately 160 degrees, and reports that any further extension is prohibitive due to pain Patient is able to flex the knee to 90 degrees, but experiences pain with flexion beyond this. Psych Appearance: grossly normal Mental Status: mental status grossly normal Results Reviewed Results Reviewed: X-rays obtained in the office today and independently reviewed by me, Romain Coronado PA-C, demonstrate no fracture or acute bony abnormality. Assessment & Plan Assessment & Plan (1) Internal derangement of right knee: Code(s): M23.91 - Unspecified internal derangement of right knee Category: Medical Plan 1. Internal derangement of right knee At this time, there is a high index of suspicion for a medial meniscus tear in this patient, due to his mechanism of injury and presenting symptoms Due to this patient's age, line of work and very active nature, MRI was ordered to assess the internal structures of the right knee PT was also ordered to begin working with the patient to see if we can achieve some degree of symptom relief with conservative measures Patient advised that he can weight bear as tolerated, but to take it easy on his right knee and avoid activities such as twisting, running, and jumping at this time Due to the patient's line of work involving lots of heavy lifting and twisting, he should be held out of work at least until MRI is obtained and results are able to be reviewed Due to MRI booking out approximately 4 weeks, patient is given 4 weeks off of work at this time, and is instructed to call the office if procedure will not be completed by that time in order to extend his time off work. Patient will follow-up after MRI in order to discuss findings and potential treatment options at that time Patient was provided a hinged knee brace to increase stability of the knee. Orders: Orders PT Evaluation and Treatment Today M23.91 - Unspecified internal derangement of right knee MR knee RT wo con Today M23.91 - Unspecified internal derangement of right knee Coding Level of Care Code New Pt Level 3 (07776) Diagnoses Internal derangement of right knee M23.91
[2024-01-18 12:51] VITALS: BMI 27.4
== END 2024-01-18 15:38 | disposition home or self-care (01) ==
DX: M23.91 Unspecified internal derangement of right knee (principal)
CPT/HCPCS: 99203

== ENCOUNTER 2024-01-29 12:21 | Outpatient (REF) | payer BC, SELFPAY ==
--- NOTE | ~2024-01-29 | XR_ITS ---
EXAMINATION: X-ray orbits. CLINICAL INFORMATION: Metallic exposure, pre MRI evaluation for metallic foreign body. Comparison: X-ray orbits on 06/03/2007 Technique: two Water's views and a lateral view x-rays of the orbits FINDINGS: Two Water's views and a lateral view x-rays of the orbits show persistent depressed left orbital floor fracture. No radiopaque foreign bodies were found. XR/XR pre mri screening IMPRESSION: 1. No radiopaque foreign bodies were found. 2. Persistent depressed left orbital floor blowout fracture.
--- NOTE | ~2024-01-29 | MR_ITS ---
EXAMINATION: MR KNEE WITHOUT CONTRAST, RIGHT CLINICAL INFORMATION: Right knee pain COMPARISON: Radiographs 01/14/2024 TECHNIQUE: MRI of the knee without contrast was performed using routine sequences on a high-field scanner. FINDINGS: MENISCI: Medial Meniscus: Intact Lateral Meniscus: Intact LIGAMENTS: Cruciate: Intact Collateral: Soft tissue edema surrounds the proximal MCL which is slightly thickened compatible with a grade 1 or a mild grade 2 sprain. Small amount of fluid deep to the ligament proximally. The lateral collateral ligament complex appears intact. EXTENSOR MECHANISM: Intact ARTICULAR CARTILAGE/BONE: Patellofemoral Compartment: Normal Medial Compartment: Focal partial-thickness cartilage loss along the lateral aspect of the weightbearing femoral condyle. Small ossified body adjacent to the tip of the medial tibial spine. Lateral Compartment: Normal JOINT FLUID AND BURSAE: No significant joint effusion. MR/MR knee RT wo con IMPRESSION: 1. Grade 1 or mild grade 2 proximal MCL sprain. 2. No meniscal tear. 3. Mild medial compartment osteoarthritis.
== END 2024-01-29 12:22 | disposition home or self-care (01) ==
LOC: HO.MRI 12:21
DX: M23.91 Unspecified internal derangement of right knee (principal)
CPT/HCPCS: 73721

== ENCOUNTER 2024-02-05 11:45 | Outpatient (AMB) | payer BC, SELFPAY ==
--- NOTE | 2024-02-05 11:49 | MHC.OFFVIS ---
Vital Signs 02/05/24 11:51 Height 5 ft 8 in Weight 185 lb BMI 28.1 Intake Visit Reasons: OV-right knee MRI review Intake Note: Arnie is a 38 year old male who presents today for an MRI review. MRI of his right knee was done on 01/29/24. Allergies No Known Allergies Allergy (Verified 02/05/24 11:51) seasonal Allergy (Unknown, Uncoded 02/05/24 11:51) Unknown HPI HPI OV-right knee MRI review: Details: Patient is a 38-year-old male who presents to the office for MRI review of his right knee. MRI was performed on 01/29/2024. Today, the patient reports he has been feeling much better, and then physical therapy has helped him tremendously in terms of the pain and instability in his right knee. 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 Patient reports no other acute concerns or complaints at this time. 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 Physical Exam Vital Signs: BMI result Body Mass Index 28.1 Const Other: Patient is alert, oriented, cooperative, and in no acute distress HEENT Head: Yes normocephalic and Yes atraumatic Resp Effort & Inspection: normal respiratory effort and able to speak in complete sentences Cardio Jugular venous distension: no JVD Neuro General: gait normal Cognition (Neuro): normal cognition Extrem Other: Patient's right knee normal to inspection No edema, erythema, or evidence of infection No pain to palpation of the right knee No ligamentous laxity noted on varus, valgus, anterior and posterior drawer testing Negative Katie's Full active range of motion of the right knee, with mild pain at the extremes of range of motion Psych Appearance: grossly normal Mental Status: mental status grossly normal Results Reviewed Results Reviewed: MRI of right knee IMPRESSION: 1. Grade 1 or mild grade 2 proximal MCL sprain. 2. No meniscal tear. 3. Mild medial compartment osteoarthritis. Assessment & Plan Assessment & Plan (1) MCL sprain of right knee: Code(s): S83.411A - Sprain of medial collateral ligament of right knee, initial encounter Category: Medical Plan 1. Right knee MCL sprain Patient reports that he is feeling much better at this time PT has been helping tremendously However, patient does not feel that his knee is stable enough to return to work at the end of the month, and PT told him that it should be a full month from orthopedic follow-up where he is ramping up to normal activities, and he reports that there is no light duty at his job Due to lingering perceived instability Patient is given an additional 2 weeks from prior return to work date of 02/15/2024, we will now return to work on 02/29/2024, and will advise his supervisors that he does have a knee injury and will likely need some accommodations Patient advised to avoid jumping and sliding across tables for the first 1-2 weeks back to work in order to prevent aggravation or re-injury. Patient is advised to continue wearing the hinged knee brace for comfort, particularly while at work, but should start to wean out of the brace in the next 1-2 weeks No scheduled follow-up necessary, patient can follow-up p.r.n. with any acute concerns Coding Level of Care Code Est Pt Level 3 (70738) Diagnoses MCL sprain of right knee S83.411A
[2024-02-05 11:51] VITALS: BMI 28.1
== END 2024-02-05 12:13 | disposition home or self-care (01) ==
DX: S83.411A Sprain of medial collateral ligament of right knee, initial encounter (principal)
CPT/HCPCS: 99213

== ENCOUNTER 2024-02-23 14:00 | Outpatient (RCR) | payer BC, SELFPAY ==
--- NOTE | 2024-01-26 15:09 | MHC.PT.EP ---
[facility] [place] [facility] [place] [facility] [place] [facility] [address] [phone] F: [phone] F: [phone] F: [phone] F: [phone] Physical Therapy Plan of Care Date of Evaluation: 01/26/24 Date of Surgery: Diagnosis: internal derangement R knee Assessment: 38 y/o male referred to PT with R knee internal derangement. Injury occurred 01/13/24 while palying baseball and pivoting to get back to a base. 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 S/s consistent with MCL sprain verse meniscus? secondary to pain at end range knee flex/extension, decreased quad strength, medial joint line pain, and impaired gait pattern. Recommend PT 2x/week for 5 weeks to address impairments, implement HEP, and optimize functional mobility. Frequency and Duration: The patient will be seen 2x/week for 5 weeks Short Term Goals: 3 weeks I with HEP Pt will decreased pain with flexion and extension < 3/10 Edge Cutting Machine Operator Goals: 5 weeks I with HEP and self management of sx Improve LEFS to 40/80 (IR 20/80) Return to gym routine Treatment Plan: Modalities to reduce pain, spasms and effusion. Manual therapy to restore motion and function. Therapeutic exercise to improve strength and flexibility. Neuromuscular re-education for posture and balance. Therapeutic activities to return to functional activities of daily living. Electronically signed by: Nery Orellana PT Please sign and return to therapist. Thank you for your referral.
--- NOTE | 2024-03-29 08:42 | MHC.PT.DC ---
[facility] [place] Office [place] Office [place] Office [address] Sheldon Comer [address] [phone] F: [phone] F: [phone] F: [phone] F: [phone] Physical Therapy Discharge Report Diagnosis: internal derangement R knee Date of Surgery: Date of Evaluation: 01/26/24 Date of Discharge: 03/29/24 Treatments to Date: 8 Cancellations to Date: 0 No Shows to Date: 2 Discharge Status: Achieved Goals Improved Function Independent with HEP Discharge Summary: Pt has made good progress with decreased pain, improved strength, and improved stability. Initiated light plyometrics and educated pt on precautions of avoiding twisting motions and increased valgus positions. Updated HEP to include light ladder drills and slowly progress resistance on own. Electronically signed by: Nery Stein PT Please sign and return to therapist. Thank you for your referral.
== END 2024-03-29 08:42 | disposition home or self-care (01) ==
LOC: HO.PT 14:00
DX: M23.91 Unspecified internal derangement of right knee (principal)
CPT/HCPCS: 97035; 97110; 97161; 97530

== ENCOUNTER 2024-03-16 21:36 | Emergency (ER) | payer BC, SELFPAY ==
--- NOTE | ~2024-03-16 | XR_ITS ---
EXAMINATION: XR ELBOW, LEFT CLINICAL INFORMATION: Injury. Pain. COMPARISON: None available. TECHNIQUE: Four views of the left elbow. FINDINGS: The bones and soft tissues are normal. No fracture or joint effusion. Alignment is anatomic. Joint spaces are maintained. XR/XR elbow LT 2V IMPRESSION: Normal left elbow. Electronically signed by: James Harris MD 03/16/2024 10:37 PM EDT RP
--- NOTE | ~2024-03-16 | CT_ITS ---
EXAMINATION: CT HEAD WITHOUT CONTRAST CLINICAL INFORMATION: crashed head into a metal pole, now dizzy and off COMPARISON: 12/07/2012 TECHNIQUE: Multidetector volumetric imaging of the head was performed without intravenous contrast material. This CT examination was performed using dose optimization techniques as appropriate, variously including the following: *Automated exposure control *Adjustment of mA and/or kV according to patient size (this includes techniques or standardized protocols for targeted exams where dose is matched to indication/reason for exam; i.e. extremities or head) *Use of iterative reconstruction technique Dose: 646 mGy-cm FINDINGS: There is no evidence of acute intracranial hemorrhage or territorial infarction. No abnormal mass-effect or midline shift is seen. Chavez to white matter differentiation is well preserved. No extra axial fluid collections. The ventricles are normal in size and configuration. There is no abnormal attenuation within the brain parenchyma. There is a small subcutaneous hematoma in the left anterolateral soft tissues over left temporalis muscle at the level of the coronal suture. No fractures. Calvarium and skull base are intact. The sinuses and mastoid air cells are clear. CT/CT head/brain wo IV con IMPRESSION: 1. No acute intracranial pathology. 2. Small subcutaneous hematoma in the left anterolateral scalp. No fractures. Electronically signed by: Shubham Rodriguez MD 03/16/2024 10:57 PM EDT
[2024-03-16 21:54] VITALS: BP 148/82; PULSE 93; RESP 20; TEMP 37.1; O2SAT 99; BMI 27.4
[2024-03-16 23:14] VITALS: BP 117/85; PULSE 64; RESP 20; TEMP 37; O2SAT 98
--- NOTE | 2024-03-17 | ED.GENADULT ---
HPI - General Adult General Chief complaint: Fall Stated complaint: head lac Time Seen by Provider: 03/16/24 23:31 Source: patient, RN notes reviewed and old records reviewed Mode of arrival: ambulatory Limitations: no limitations History of Present Illness ED Provider: Willie SOLIS narrative: 38-year-old male presents for evaluation after running into a metal pole Patient was playing baseball and attempting to catch a fly ball. He was not looking where he was running He ran into a metal pole and struck the left side of his face on the pole He reports left elbow pain, upper back pain, left-sided facial pain where he struck the pole Patient states that after hitting his head he felt ?dazed and cross-eyed for a few seconds. ? He did not lose consciousness. He reports finishing the game and then coming to be evaluated afterwards. This did happen a few hours prior to arrival Related Data Previous Rx's ?Medication ?Instructions ?Recorded ibuprofen 800 mg tablet 800 mg PO TID PRN pain #10 tabs 11/04/20 cyclobenzaprine 10 mg tablet 10 mg PO TID PRN muscle spasm #15 03/17/24 tabs Allergies Allergy/AdvReac Type Severity Reaction Status Date / Time No Known Allergies Allergy Verified 03/16/24 21:56 seasonal Allergy Unknown Unknown Uncoded 03/16/24 21:56 Review of Systems Constitutional: Constitutional: Denies frequent falls and Reports headache(s) Eyes: Eyes: Reports change in vision (for several seconds after head strike) ENT: Reports headache(s) Cardiovascular: Cardiovascular: Denies syncope Musculoskeletal: Musculoskeletal: Reports back pain, Reports radiating pain into limb and Reports stiffness Integumentary/Breasts: Skin/Breast: Reports wounds Neurologic: Denies syncope, Denies frequent falls and Reports headache(s) [facility] Past Medical History Medical History No known health problems Surgical History History of appendectomy Social History Social History (Updated 02/05/24 @ 11:52 by ALIYAH Hanna) Smoked in Last 30 Days: No Advance Directives: No Advance Directives Information Provided: No Do you have a plan to hurt others: No Plan Current occupational status: employed 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 Physical Exam ED Vital Signs: Vital Signs - 24 hr 03/16/24 21:54 03/16/24 23:14 03/16/24 23:14 Temperature 98.7 F 98.6 F 98.6 F Pulse Rate 93 64 64 Respiratory Rate 20 20 20 Blood Pressure 148/82 H 117/85 117/85 Pulse Oximetry 99 98 98 Oxygen Delivery Method Room Air Room Air 03/17/24 00:08 Temperature 98.4 F Pulse Rate 56 Respiratory Rate 16 Blood Pressure 106/50 L Pulse Oximetry 97 Oxygen Delivery Method Room Air BMI result Body Mass Index 27.4 Const General: healthy appearing, comfortable, no acute distress, alert and awake Nutritional Appearance: well nourished Orientation/consciousness: patient oriented x3 Eyes Eyelids: Yes eyelids normal Conjunctivae: conjunctivae normal Sclerae: sclerae normal Corneas: corneas normal Pupils: Equal, round and reactive pupils present EOM: EOMs intact bilaterally Neck Neck: Yes full ROM Resp Effort & Inspection: normal respiratory effort, able to speak in complete sentences and not labored Back/Spine/Pelvis Cervical Spine: No Cervical spine tenderness Skin Other: Patient has a 1 cm partial-thickness, superficial laceration to the left temporal region. No active bleeding. There is a surrounding cutaneous hematoma General skin exam: elasticity normal Neuro General: patient oriented x3 Cranial nerves: Yes Equal, round and reactive pupils present and Yes Bilaterally intact EOM present Cognition (Neuro): normal cognition Extrem Other: Patient has tenderness to the left trapezius muscle group without focal vertebral tenderness, step-offs or deformities. He has mild edema to the left elbow with tenderness to the left elbow. The patient does have full extension of the left elbow with pronation supination. He has very slightly limited range of motion with extreme flexion of the left elbow. He has some tenderness to the left anterior shoulder but full range of motion to left shoulder Medications Administered Discontinued Medications Generic Name Dose Route Start Last Admin Trade Name Freq PRN Reason Stop Dose Admin Acetaminophen 975 mg 03/16/24 23:47 03/17/24 00:01 Acetaminophen 325 Mg Tablet PO 03/16/24 23:48 Not Given ONCE ONE Cyclobenzaprine HCl 10 mg 03/16/24 23:47 03/17/24 00:01 Cyclobenzaprine Hcl 10 Mg Tablet PO 03/16/24 23:48 Not Given ONCE ONE Medical Decision Making Medical Decision Making MDM Narrative: 38-year-old healthy male presents for evaluation after a minor trauma. The patient ran into a pole. Plan for CT scan of the brain given the head trauma. He did not lose consciousness. He did injure his elbow, x-rays ordered. The patient has a small superficial wound, it is well approximated, not actively bleeding. The wound was cleaned. The patient was offered sutures but declined which I feel is appropriate, Steri-Strips were applied as there is apparently no skin adhesive in the department. Differential Diagnosis Differential Diagnoses: The differential diagnosis associated with the presentation includes Concussion Minor head injury Laceration Contusion Elbow fracture Elbows strain Independent Interpretation I performed an independent interpretation of an: CT Scan Interpretation: Agree with Radiology interpretation Radiology Impression Discussion of test interpretation with radiology: I have reviewed the radiologist's reading. Radiologist Impression: CT/CT head/brain wo IV con IMPRESSION: 1. No acute intracranial pathology. 2. Small subcutaneous hematoma in the left anterolateral scalp. No fractures. Discharge Plan Discharge Clinical Impression: Minor head injury, Contusion of elbow, left Patient Disposition: Home, Self-Care Instructions: Concussion (ED), Hematoma (ED) Additional Instructions: Your CT scan did not show any significant traumatic injuries. Your x-ray did not show any obvious fracture of the left elbow. Subtle elbow fractures can be difficult to see on an x-ray. I recommend a repeat x-ray in 1 week if you are still having pain to the elbow The wound is superficial, but keep it clean and dry, you may use topical antibiotic Follow-up with your primary doctor, return for new or worsening symptoms You may use ibuprofen/Tylenol for pain Use cyclobenzaprine for muscle spasms This may make you sleepy, did not drink alcohol or drive after taking it Prescriptions: New cyclobenzaprine 10 mg tablet 10 mg PO TID PRN (Reason: muscle spasm) Qty: 15 0RF No Action ibuprofen 800 mg tablet 800 mg PO TID PRN (Reason: pain) Qty: 10 0RF Stand Alone Forms: Work/School Release Interventions: ED Discharge Assessment Last Done: 03/17/24 00:08 Discharge Date/Time: 03/17/24 00:13 Print Language: Djiboutian
[2024-03-17 00:08] VITALS: BP 106/50; PULSE 56; RESP 16; TEMP 36.9; O2SAT 97
== END 2024-03-17 00:13 | disposition home or self-care (01) ==
PROVIDERS: Emergency Provider Emergency Medicine
DX: S09.8XXA Other specified injuries of head, initial encounter (principal); S50.02XA Contusion of left elbow, initial encounter; W22.09XA Striking against other stationary object, initial encounter; Y93.64 Activity, baseball; Y92.9 Unspecified place or not applicable; Y99.9 Unspecified external cause status
CPT/HCPCS: 70450; 73070; 99284

== ENCOUNTER 2024-08-29 17:31 | Emergency (ER) | payer BC, SELFPAY ==
--- NOTE | ~2024-08-29 | XR_ITS ---
CLINICAL HISTORY: cough, shortness of breath 2 view chest x-ray Comparison: CR - CHEST 2 VIEWS [id number] - 12/18/11 00:05 EDT Findings: Right upper lobe patchy consolidation. No pleural effusion or pneumothorax. Normal size heart. No acute fracture. IMPRESSION: 1. Right upper lobe patchy consolidation may represent pneumonia. This document has been electronically signed by: Buck Cain MD on 08/29/2024 20:05:44
--- NOTE | 2024-08-29 17:40 | ECG_ITS ---
Test Reason : CP Blood Pressure : */* mmHG Vent. Rate : 66 BPM Atrial Rate : 66 BPM P-R Int : 126 ms QRS Dur : 102 ms QT Int : 362 ms P-R-T Axes : 33 28 10 degrees QTcB Int : 379 ms Normal sinus rhythm Incomplete right bundle branch block Borderline ECG When compared with ECG of 17-Dec-2011 23:54, Premature atrial complexes are no longer Present Referred By: Generic ED Physician Electronically Signed By: JU JEWELL MD
[2024-08-29 18:53] VITALS: BP 149/94; PULSE 93; RESP 18; TEMP 36.8; O2SAT 99; BMI 28.9
--- NOTE | 2024-08-29 18:55 | ED.GENADULT ---
HPI - General Adult General Chief complaint: Chest Pain Stated complaint: SOB, chest pain x5 days Time Seen by Provider: 08/29/24 23:23 Source: patient Limitations: no limitations History of Present Illness ED Provider: Debra Wise PA-C HPI narrative: 39-year-old male presents with cough, left-sided chest discomfort with the shortness of breath and nausea x4 days. Pain worse with deep inspiration. Subjective fevers at home. Related Data Previous Rx's ?Medication ?Instructions ?Recorded ibuprofen 800 mg tablet 800 mg PO TID PRN pain #10 tabs 11/04/20 cyclobenzaprine 10 mg tablet 10 mg PO TID PRN muscle spasm #15 03/17/24 tabs amoxicillin 500 mg tablet 1,000 mg (2 x 500 mg) PO TID #60 08/30/24 tabs azithromycin 250 mg tablet 250 mg PO DAILY 4 days #4 tabs 08/30/24 Allergies Allergy/AdvReac Type Severity Reaction Status Date / Time seasonal Allergy Unknown Hives Uncoded 08/29/24 18:56 Review of Systems Review of Systems: Yes all other systems are reviewed and are negative Constitutional: Constitutional: Denies fatigue and Reports fever(s) Cardiovascular: Cardiovascular: Reports chest pain and Reports dyspnea Respiratory: Respiratory: Reports chest congestion, Reports cough and Reports dyspnea Gastrointestinal: Gastrointestinal: Denies abdominal pain and Reports nausea Endocrine: Endocrine: Denies fatigue PMFSH Past Medical History Attestation statement: The following information was validated with the patient. 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 ED Vital Signs: Vital Signs - 24 hr 08/29/24 18:53 08/29/24 22:21 08/30/24 00:00 Temperature 98.2 F 99.6 F 97.4 F Pulse Rate 93 86 82 Respiratory Rate 18 18 16 Blood Pressure 149/94 H 145/79 H 131/84 Pulse Oximetry 99 96 95 Oxygen Delivery Method Room Air Room Air Room Air BMI result Body Mass Index 28.9 Const Other: Alert Orientation/consciousness: patient oriented x3 Resp Other: Nonlabored respirations, no obvious adventitious lung sounds Cardio Other: Normal peripheral perfusion Skin Other: Warm dry no rash Neuro General: patient oriented x3, gait normal, no focal motor deficits and CN's II-XI intact bilaterally Psych Other: Cooperative Course Course Course Narrative: RME, this is a rapid medical exam performed by Van Tapia please refer to primary provider for complete H&P- 39-year-old male presents for evaluation of shortness of breath, cough. His vital signs are stable. Plan for viral swabs and chest x-ray Medications Administered Discontinued Medications Generic Name Dose Route Start Last Admin Trade Name Freq PRN Reason Stop Dose Admin Amoxicillin 500 mg 08/29/24 23:57 08/30/24 00:16 Amoxicillin 500 Mg Capsule PO 08/29/24 23:58 500 mg ONCE ONE Administration Azithromycin 500 mg 08/29/24 23:57 08/30/24 00:16 Azithromycin 500 Mg Tablet PO 08/29/24 23:58 500 mg ONCE ONE Administration Ibuprofen 800 mg 08/29/24 22:15 08/29/24 22:19 Ibuprofen 800 Mg Tablet PO 08/29/24 22:16 800 mg ONCE ONE Administration Medical Decision Making Medical Decision Making [facility] Narrative: 39-year-old male presents with cough, left-sided chest discomfort with the shortness of breath and nausea x4 days. Pain worse with deep inspiration. Subjective fevers at home. No relevant chronic issues History: Per patient I have considered the following differential diagnoses: Viral syndrome, bronchitis, pneumonia, PE, ACS Plan: I have independently reviewed the following tests: Labs: No leukocytosis, not anemic, no electrolyte abnormality, troponin negative, viral panel negative EKG: Normal sinus rhythm, rate of 66, no ischemic changes no ectopy incomplete RBBB noted Chest x-ray:indings: Right upper lobe patchy consolidation. No pleural effusion or pneumothorax. Normal size heart. No acute fracture. IMPRESSION: 1. Right upper lobe patchy consolidation may represent pneumonia. This document has been electronically signed by: Buck Cain MD on 08/29/2024 20:05:44 Lab Data 08/29/24 21:40 08/29/24 21:40 Labs: Lab Results 08/29/24 Range/Units 21:40 WBC 4.7 L (4.8-10.8) X10*3/uL RBC 4.62 (4.60-5.80) X10*6/uL Hgb 13.8 L (14.0-18.0) g/dl Hct 40.8 L (42.0-52.0) % MCV 88.3 (80.0-98.0) fL MCH 29.9 (27.0-33.0) pg MCHC 33.8 (31.0-36.0) g/dl RDW 12.4 (11.0-16.0) % Plt Count 225 (160-400) X10*3/uL MPV 9.4 (9.4-12.4) fL Immature Gran % (Auto) 0.4 (0.0-0.4) % Neut % (Auto) 67.6 (45-73) % Lymph % (Auto) 21.3 (20-40) % [place] % (Auto) 9.7 (2-11) % Eos % (Auto) 0.8 (0-4) % Baso % (Auto) 0.2 (0-2) % Lymph # (Auto) 1.0 L (1.2-4.9) X10*3/uL [place] # (Auto) 0.5 (0.1-1.2) X10*3/uL Eos # (Auto) 0.0 (0.0-0.4) X10*3/uL Baso # (Auto) 0.0 (0.0-0.2) X10*3/uL Abs Immat Gran (auto) 0.02 (0.00-0.03) X10*3/uL Absolute Neuts (auto) 3.2 (2.0-8.3) x10*3/uL Absolute Nucleated RBC 0.000 (0.0-0.012) X10*3/uL Nucleated RBC % (auto) 0.0 (0.0-0.2) /100WBC PT 12.5 H (10.9-12.4) SEC INR 1.1 (0.9-1.1) Sodium 139 (135-145) mmol/L Potassium 4.3 (3.3-5.1) mmol/L Chloride 103 (96-108) mmol/L Carbon Dioxide 27 (22-29) mmol/L Anion Gap 13 (12-20) BUN 10 (9-16) mg/dL Creatinine 1.08 (0.5-1.4) mg/dL Estim Creat Clear Calc 99.0 Estimated GFR > 60 Random Glucose 102 (60-115) mg/dL Calcium 9.4 (8.4-10.2) mg/dL Total Bilirubin 0.6 (0.0-1.0) mg/dL AST 39 H (5-37) U/L ALT 27 (0-40) U/L Alkaline Phosphatase 66 (39-117) U/L Troponin I High Sens < 2.7 (<3.5-35.0) ng/L Total Protein 7.8 (6.5-8.0) g/dL Albumin 3.9 (3.5-5.0) g/dL Lipase 26 (8-78) U/L Influenza Type A (PCR) NEGATIVE (Negative) Influenza Type B (PCR) NEGATIVE (Negative) RSV RNA Qual (PCR) NEGATIVE (Negative) SARS-CoV-2 RNA (RT-PCR) NEGATIVE (Negative) Discharge Plan Discharge Clinical Impression: Pneumonia Patient Disposition: Home, Self-Care Instructions: Community Acquired Pneumonia (ED) Additional Instructions: You were found to have pneumonia. See home care instructions. Take the amoxicillin as directed, take the azithromycin as directed. All of your screening labs including a cardiac enzymes were normal. We also obtained a viral panel, you were screened for influenza a and B, RSV and COVID, it was negative. There were no concerning changes on the EKG. Prescriptions: New amoxicillin 500 mg tablet 1,000 mg PO TID Qty: 60 0RF azithromycin 250 mg tablet 250 mg PO DAILY 4 Days Qty: 4 0RF Rx Instructions: start on day 2 of therapy No Action ibuprofen 800 mg tablet 800 mg PO TID PRN (Reason: pain) Qty: 10 0RF cyclobenzaprine 10 mg tablet 10 mg PO TID PRN (Reason: muscle spasm) Qty: 15 0RF Stand Alone Forms: Work/School Release Print Language: Lithuanian
[2024-08-29 21:42] LABS: MANUAL DIFF FLAG NO
[2024-08-29 21:43] LABS: Basophils Percent Auto 0.2 % (0-2); Eosinophils Percent Auto 0.8 % (0-4); Hematocrit 40.8 % (42.0-52.0); Hemoglobin 13.8 g/dl (14.0-18.0); Imm Gran Abs Auto 0.02 X10*3/uL (0.00-0.03); Imm Gran Pct Auto 0.4 % (0.0-0.4); Lymphocytes Percent Auto 21.3 % (20-40); Mean Corpuscular HGB Conc 33.8 g/dl (31.0-36.0); Mean Corpuscular Hemoglobin 29.9 pg (27.0-33.0); Mean Corpuscular Volume 88.3 fL (80.0-98.0); Mean Platelet Volume 9.4 fL (9.4-12.4); Monocytes Absolute Auto 0.5 X10*3/uL (0.1-1.2); Monocytes Percent Auto 9.7 % (2-11); Neutrophils Absolute Auto 3.2 x10*3/uL (2.0-8.3); Neutrophils Percent Auto 67.6 % (45-73); Platelet Count 225 X10*3/uL (160-400); Red Blood Count 4.62 X10*6/uL (4.60-5.80); Red Cell Distribution Width 12.4 % (11.0-16.0); White Blood Count 4.7 X10*3/uL (4.8-10.8)
[2024-08-29 21:52] LABS: INTERNATIONAL NORM RATIO 1.1 (0.9-1.1); Prothrombin Time 12.5 SEC (10.9-12.4)
[2024-08-29 21:57] LABS: Alanine Aminotransferase 27 U/L (0-40); Albumin Level 3.9 g/dL (3.5-5.0); Alkaline Phosphatase 66 U/L (39-117); Anion Gap 13 (12-20); Aspartate Amino Transferase 39 U/L (5-37); Bilirubin Total 0.6 mg/dL (0.0-1.0); Blood Urea Nitrogen 10 mg/dL (9-16); Calcium 9.4 mg/dL (8.4-10.2); Carbon Dioxide 27 mmol/L (22-29); Chloride 103 mmol/L (96-108); Estimated Glomerular Filt Rate > 60; Glucose Random 102 mg/dL (60-115); Lipase 26 U/L (8-78); Potassium 4.3 mmol/L (3.3-5.1); Sodium 139 mmol/L (135-145); Total Protein 7.8 g/dL (6.5-8.0)
[2024-08-29 22:08] LABS: Troponin-I High Sensitivity < 2.7 ng/L (<3.5-35.0)
[2024-08-29] MEDS: Ibuprofen 800 MG TABLET PO (22:19)
[2024-08-29 22:21] VITALS: BP 145/79; PULSE 86; RESP 18; TEMP 37.6; O2SAT 96
--- NOTE | 2024-08-29 22:24 | PC.NURSE ---
Pt reports increased pain when coughing, 10/10. Req Ibuprofen 800. Verbal order obtained from Dr. Gleason. Pt sent back to the waiting room.
[2024-08-29 22:52] LABS: Influenza A PCR NEGATIVE (Negative); Influenza B PCR NEGATIVE (Negative); Resp Syncy Virus RNA Qual PCR NEGATIVE (Negative); SARS COV2 PCR INHOUSE NEGATIVE (Negative)
--- OUTSIDE RECORDS SUMMARY | 2024-08-29 23:01 | XMS_ITS | Encounter Summary ---
Author Organization [facility] Address [address] [place] [address] Phone Care Team Providers Care Clinical Laboratory Technologist Name Role Phone Pedrito Cantrell MD Primary Care Provider [phone] Encounter Details Date Type Department Care Team (Late st Contact Info) Description 03/05/2017 Conversion Encounter [facility] [address] [place] [address] Social History Tobacco Use Types Packs/Day Years Used Date Smoking Tobacco: Never Assessed Sex and Gender Information Value Date Recorded Sex Assigned at Not on file Legal Sex Male 4:22 PM EDT Gender Identity Not on file Sexual Orientation Not on file documented as of this encounter Plan of Treatment Not on file documented as of this encounter Visit Diagnoses Not on filedocumented in this encounter Care Teams Clinical Laboratory Technologist Relationship Specialty Start Date End Date Pedrito Cantrell MD [address] [facility] [place] [address] PCP - General 02/27/17 10/28/22 documented as of this encounter
--- OUTSIDE RECORDS SUMMARY | 2024-08-29 23:01 | XMS_ITS | Encounter Summary ---
Author Organization [facility] Address [address] [place] [phone] Phone Care Team Providers Care Sales Agent Trading Stamps Name Role Phone Pedrito Cantrell MD Primary Care Provider [phone] Encounter Details Date Type Department Care Team (Late st Contact Info) Description 12/24/2015 Documentation EM Family Medicine [address] [place] [address] Family Medicine, Physician [address] [place], [place] [id number] Social History Tobacco Use Types Packs/Day Years [...] on filedocumented in this encounter Care Teams Sales Agent Trading Stamps Relationship Specialty Start Date End Date Pedrito Cantrell MD [address] [place] [address] [place] [address] PCP - General 02/27/17 10/28/22 documented as of this encounter
--- OUTSIDE RECORDS SUMMARY | 2024-08-29 23:01 | XMS_ITS | Clinical Summary ---
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 Name Role Phone Unavailable Primary Care Provider Unavailabl e Immunizations Immunization Administration Dates Next Due DTP 01/16/1994, 2,09/16/1990,1989,09/16/1989 Hep B, ped/adol 06/30/2001, 8,07/19/1997,1996 Hib (PRP-T) 08/19/1991,09/16/1990 IPV 01/16/1994, 2,04/18/1990,1989 MMR 04/18/1995,08/19/1991 Td (adult) (MBL), 2 Lf tetan us toxoid, PF, adsorbed 06/30/2001 Social History Tobacco Use Types Packs/Day Years Used Date Smoking Tobacco: Never Assessed Sex and Gender Information Value Date Recorded Sex Assigned at Not on file Legal Sex Male 4:22 PM EDT Gender Identity Not on file Sexual Orientation Not on file Plan of Treatment Health Maintenance Due Date Last Done Comments Varicella Vaccines (1 of 2 - 13+ 2-dose series) 1999 DTaP,Tdap,and Td Vaccines (5 - Tdap) 07/01/2001 06/30/2001, 01/16/1994, 08/19/1991, Additional history exists Consider Men B Vaccine (1 of 2 - Bexsero 2-dose series) 2002 Influenza Vaccines (#1) 2024 COVID-19 Vaccine ( - season) 2024 HIB Vaccines Completed 08/19/1991, 09/16/1990 IPV Vaccines Completed 01/16/1994, 07/22, 04/18/1990, Additional history exists MMR Vaccines Completed 04/18/1995, 08/19/1991 Hepatitis B Vaccines Completed 06/30/2001, 10/17/1997, 07/19/1997, Additional history exists HPV Vaccines Aged Out No longer eligi ble based on patient's age to complete this topic Hepatitis A Vaccines Aged Out No long er eligible based on patient's age to complete this topic Men B Vaccine Aged Out No longer elig ible based on patient's age to complete this topic Meningococcal Vaccine Aged Out No fritz cate eligible based on patient's age to complete this topic Pneumococcal Vaccine Aged Out No long er eligible based on patient's age to complete this topic
[2024-08-30] VITALS: BP 131/84; PULSE 82; RESP 16; TEMP 36.3; O2SAT 95
[2024-08-30] MEDS: Azithromycin 500 MG TABLET PO (00:16)
[2024-08-30] MEDS: Amoxicillin 500 MG CAPSULE PO (00:16)
--- NOTE | 2024-08-30 00:21 | PC.NURSE ---
pt medicated per mar.
--- NOTE | 2024-08-30 00:31 | PC.NURSE ---
pt a&o, medicated per mar, provider into discuss plan of care.
--- NOTE | 2024-08-30 01:59 | PC.NURSE ---
Reviewed discharge instructions with pt. pt verbalized understanding, no sign of respirator distress. pt ambulated with a steady gait upon discharge
[2024-08-30 02:00] VITALS: BP 131/84; PULSE 82; RESP 16; TEMP 36.3; O2SAT 95
== END 2024-08-30 02:00 | disposition home or self-care (01) ==
PROVIDERS: Physician Assistant; Emergency Provider Emergency Medicine
DX: J18.9 Pneumonia, unspecified organism (principal); R05.9 Cough, unspecified; R06.02 Shortness of breath; R07.9 Chest pain, unspecified; R11.0 Nausea
CPT/HCPCS: 0241U; 36415; 71046; 80053; 83690; 84484; 85025; 85610; 93005; 99283; 99285

== ENCOUNTER → 2024-08-29 17:40 | Outpatient (BNV) | payer BC, SELFPAY | PROVIDERS: Emergency Provider Emergency Medicine; Visit Provider Internal Medicine Cardiovascular Disease | DX: I45.10 Unspecified right bundle-branch block (principal) | CPT/HCPCS: 93010 ==

== ENCOUNTER → 2024-08-29 18:55 | Outpatient (BNV) | payer BC, SELFPAY | PROVIDERS: Visit Provider Student in an Organized Health Care Education/Training Program | DX: R06.02 Shortness of breath (principal) | CPT/HCPCS: 71046 ==

== ENCOUNTER 2024-10-12 23:55 | Emergency (ER) | payer BC, SELFPAY ==
--- NOTE | ~2024-10-12 | CT_ITS ---
CLINICAL HISTORY: Left tmeporal pain. Head injury several mos ago CT head without contrast Comparison: CT/SC/SR - CT HEAD/BRAIN WO IV CON - 03/16/24 22:18 EDT Findings: No intracranial mass, midline shift, hydrocephalus, or acute hemorrhage. Visualized paranasal sinuses and mastoid air cells appear clear. No acute skull fracture. Impression: 1. No acute intracranial abnormality. No acute intracranial hemorrhage. This document has been electronically signed by: Mayco Olmos MD on 10/13/2024 02:40:01
[2024-10-13 00:01] VITALS: BP 148/92; PULSE 71; RESP 16; TEMP 36; O2SAT 99; BMI 28.9
--- NOTE | 2024-10-13 01:32 | ED.GENADULT ---
HPI - General Adult General Chief complaint: Headache Stated complaint: head strike 3 days ago Time Seen by Provider: 10/13/24 01:32 History of Present Illness ED Provider: Victorino SOLIS narrative: The patient is a 39-year-old maleWho says that last summer he sustained a significant head injury when he ran into a pole and struck the left side of his head. He came to the emergency room here. He has a head CT that showed no acute intracranial pathology although there was a scalp hematoma in the region of the left temporal bone. The patient says that 3 days ago, while doing nothing in particular, he experienced a swelling of his face around his eyes and a recurrence of the pain on the left side of his head that he says was like the pain he had at the time of his injury. He says this is not a headache but a pain on the side of his head. Pain has persisted for the last 3 days and he came to the emergency room for evaluation. He has had no nausea or vomiting. He has been going to work. 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 He says he has had some visual symptoms but can not describe them. He has no neck pain or stiffness. He denies fever, sweats, chills. The patient says that his head pain in not a headache, but a pain on the side of his head. Related Data Previous Rx's ?Medication ?Instructions ?Recorded ibuprofen 800 mg tablet 800 mg PO TID PRN pain #10 tabs 11/04/20 cyclobenzaprine 10 mg tablet 10 mg PO TID PRN muscle spasm #15 03/17/24 tabs amoxicillin 500 mg tablet 1,000 mg (2 x 500 mg) PO TID #60 08/30/24 tabs azithromycin 250 mg tablet 250 mg PO DAILY 4 days #4 tabs 08/30/24 ibuprofen 600 mg tablet 600 mg PO Q6H PRN pain #14 tabs 10/13/24 Allergies Allergy/AdvReac Type Severity Reaction Status Date / Time seasonal Allergy Unknown Hives Uncoded 10/13/24 00:04 Review of Systems Review of Systems: Yes all other systems are reviewed and are negative PMFSH Past Medical History Medical History No known health problems Surgical History History of appendectomy Social History Social History (Updated 02/05/24 @ 11:52 by ALIYAH Hanna) Unable to assess alcohol history related to: Unknown Current occupational status: employed 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 He awoke easily with verbal stimulation. he did not seem in obvious distress. He did not seem obviously ill. HENMT Other: Face is symmetrical. The pharynx is normal. Mucous membranes moist. No obvious abnormalities to the scalp. There is some left temporal tenderness. Eyes Other: Pupils are round, equal, and reactive to light, extraocular movements are intact, funduscopic exam is unremarkable. Neck Other: No adenopathy. The neck is entirely supple. He can touch his chin to his chest very easily and without any hesitation or signs of discomfort. Resp Effort & Inspection: normal respiratory effort Auscultation: clear to auscultation bilaterally Cardio Rate: regular rate Rhythm: regular rhythm Heart sounds: S1 normal heart sound present and S2 normal heart sound present Skin Other: skin is dry and unremarkable. Neuro Other: The patient is awake and alert with normal mental status. Cranial nerves 2-12 are intact. He has a supple neck. He moves his extremities normally and appropriately. His gait is normal. He seems entirely neurologically intact. Extrem Other: No peripheral edema Medications Administered Discontinued Medications Generic Name Dose Route Start Last Admin Trade Name Freq PRN Reason Stop Dose Admin Ibuprofen 600 mg 10/13/24 03:03 10/13/24 03:15 Ibuprofen 600 Mg Tablet PO 10/13/24 03:04 600 mg ONCE ONE Administration Medical Decision Making Medical Decision Making MDM Narrative: the patient presents with unusual description of had symptoms that have been bothering him for the last 3 days. He describes having had a head injury last summer when he came to the emergency room. At that time he had a CT of the head that showed no acute intracranial problem or skull fracture. There was a scalp hematoma on the left side of the head seen on the CT. Patient describes the onset of the symptoms that he is currently experiencing as beginning 3 days ago. He says that the skin of his face around his eyes became very swollen and he developed pain on the left side of his head in the same place that he had the pain with his head injury. 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 He was very eager to have a CT scan of his head to evaluate his symptoms. He denies having any fever. The patient's description of his symptoms did not fit any obvious disease pattern. Description does not sound like a subarachnoid hemorrhage and I do not think he describes symptoms consistent with meningitis. I thought perhaps he might have migraine symptoms and offered IV treatment for possible migraine. The patient did not wish to have any IV treatment. He had a CT scan that was negative and unremarkable blood work. He was again offered symptomatic treatment but ultimately would only accept oral ibuprofen. He was given a work note for today. He looks well enough for discharge. He should return if worse. Lab Data 10/13/24 02:05 10/13/24 02:05 Labs: Lab Results 10/13/24 Range/Units 02:05 WBC 4.1 L (4.8-10.8) X10*3/uL RBC 4.79 (4.60-5.80) X10*6/uL Hgb 14.6 (14.0-18.0) g/dl Hct 42.3 (42.0-52.0) % MCV 88.3 (80.0-98.0) fL MCH 30.5 (27.0-33.0) pg MCHC 34.5 (31.0-36.0) g/dl RDW 13.2 (11.0-16.0) % Plt Count 240 (160-400) X10*3/uL MPV 8.7 L (9.4-12.4) fL Immature Gran % (Auto) 0.2 (0.0-0.4) % Neut % (Auto) 52.2 (45-73) % Lymph % (Auto) 34.4 (20-40) % Meriwether % (Auto) 9.8 (2-11) % Eos % (Auto) 2.9 (0-4) % Baso % (Auto) 0.5 (0-2) % Lymph # (Auto) 1.4 (1.2-4.9) X10*3/uL Meriwether # (Auto) 0.4 (0.1-1.2) X10*3/uL Eos # (Auto) 0.1 (0.0-0.4) X10*3/uL Baso # (Auto) 0.0 (0.0-0.2) X10*3/uL Abs Immat Gran (auto) 0.01 (0.00-0.03) X10*3/uL Absolute Neuts (auto) 2.1 (2.0-8.3) x10*3/uL Absolute Nucleated RBC 0.000 (0.0-0.012) X10*3/uL Nucleated RBC % (auto) 0.0 (0.0-0.2) /100WBC Sodium 141 (135-145) mmol/L Potassium 4.3 (3.3-5.1) mmol/L Chloride 105 (96-108) mmol/L Carbon Dioxide 28 (22-29) mmol/L Anion Gap 12 (12-20) BUN 15 (9-16) mg/dL Creatinine 1.15 (0.5-1.4) mg/dL Estim Creat Clear Calc 92.9 Estimated GFR > 60 Random Glucose 97 (60-115) mg/dL Calcium 9.8 (8.4-10.2) mg/dL Total Bilirubin 0.4 (0.0-1.0) mg/dL Direct Bilirubin 0.1 (0.0-0.5) mg/dL AST 34 (5-37) U/L ALT 28 (0-40) U/L Alkaline Phosphatase 77 (39-117) U/L C-Reactive Protein 0.10 (< or = 0.50) mg/dL Total Protein 7.0 (6.5-8.0) g/dL Albumin 4.1 (3.5-5.0) g/dL Discharge Plan Discharge Clinical Impression: Head pain, Visual symptoms Patient Disposition: Home, Self-Care Additional Instructions: Your CT scan today shows no abnormalities. Your blood testing is also very reassuring. You may use ibuprofen as needed for pain. I have sent a prescription for this medication to your pharmacy. You may also use [id number] acetaminophen (Tylenol) as needed. You has been provided with a work note so that you can rest today (). Please consider making an appointment with your primary care doctor at the [facility] in [place] for a second opinion. Return to the emergency room if significantly worse. Prescriptions: New ibuprofen 600 mg tablet 600 mg PO Q6H PRN (Reason: pain) Qty: 14 0RF No Action ibuprofen 800 mg tablet 800 mg PO TID PRN (Reason: pain) Qty: 10 0RF cyclobenzaprine 10 mg tablet 10 mg PO TID PRN (Reason: muscle spasm) Qty: 15 0RF amoxicillin 500 mg tablet 1,000 mg PO TID Qty: 60 0RF azithromycin 250 mg tablet 250 mg PO DAILY 4 Days Qty: 4 0RF Rx Instructions: start on day 2 of therapy Referrals: [facility] [Provider Group] (headache) Stand Alone Forms: Work/School Release Interventions: ED Discharge Assessment Last Done: 10/13/24 03:21 Discharge Date/Time: 10/13/24 03:22 Print Language: Arabic
[2024-10-13 02:10] LABS: Basophils Percent Auto 0.5 % (0-2); Eosinophils Absolute Auto 0.1 X10*3/uL (0.0-0.4); Eosinophils Percent Auto 2.9 % (0-4); Hematocrit 42.3 % (42.0-52.0); Hemoglobin 14.6 g/dl (14.0-18.0); Imm Gran Abs Auto 0.01 X10*3/uL (0.00-0.03); Imm Gran Pct Auto 0.2 % (0.0-0.4); Lymphocytes Absolute Auto 1.4 X10*3/uL (1.2-4.9); Lymphocytes Percent Auto 34.4 % (20-40); MANUAL DIFF FLAG NO; Mean Corpuscular HGB Conc 34.5 g/dl (31.0-36.0); Mean Corpuscular Hemoglobin 30.5 pg (27.0-33.0); Mean Corpuscular Volume 88.3 fL (80.0-98.0); Mean Platelet Volume 8.7 fL (9.4-12.4); Monocytes Absolute Auto 0.4 X10*3/uL (0.1-1.2); Monocytes Percent Auto 9.8 % (2-11); Neutrophils Absolute Auto 2.1 x10*3/uL (2.0-8.3); Neutrophils Percent Auto 52.2 % (45-73); Platelet Count 240 X10*3/uL (160-400); Red Blood Count 4.79 X10*6/uL (4.60-5.80); Red Cell Distribution Width 13.2 % (11.0-16.0); White Blood Count 4.1 X10*3/uL (4.8-10.8)
[2024-10-13 02:37] LABS: Alanine Aminotransferase 28 U/L (0-40); Albumin Level 4.1 g/dL (3.5-5.0); Alkaline Phosphatase 77 U/L (39-117); Anion Gap 12 (12-20); Aspartate Amino Transferase 34 U/L (5-37); Bilirubin Direct 0.1 mg/dL (0.0-0.5); Bilirubin Total 0.4 mg/dL (0.0-1.0); Blood Urea Nitrogen 15 mg/dL (9-16); Calcium 9.8 mg/dL (8.4-10.2); Carbon Dioxide 28 mmol/L (22-29); Chloride 105 mmol/L (96-108); Creatinine Clr Calc Pharmacy 92.9; Estimated Glomerular Filt Rate > 60; Glucose Random 97 mg/dL (60-115); Potassium 4.3 mmol/L (3.3-5.1); Sodium 141 mmol/L (135-145)
[2024-10-13] MEDS: Ibuprofen 600 MG TABLET PO (03:15)
[2024-10-13 03:21] VITALS: BP 143/82; PULSE 78; RESP 19; TEMP 36.6; O2SAT 95
== END 2024-10-13 03:22 | disposition home or self-care (01) ==
PROVIDERS: Emergency Provider Emergency Medicine
DX: R51.9 Headache, unspecified (principal); H53.9 Unspecified visual disturbance
CPT/HCPCS: 36415; 70450; 80048; 80076; 85025; 86140; 99284

== ENCOUNTER → 2024-10-13 01:43 | Outpatient (BNV) | payer BC, SELFPAY | PROVIDERS: Emergency Provider Emergency Medicine; Visit Provider Radiology Diagnostic Radiology | DX: R51.9 Headache, unspecified (principal) | CPT/HCPCS: 70450 ==

== ENCOUNTER 2024-11-06 14:09 | Emergency (ER) | payer BC, SELFPAY ==
--- NOTE | ~2024-11-06 | CT_ITS ---
CLINICAL HISTORY: right elbow pain,locking CT right elbow without contrast Comparison: 11/06/2024 Findings: There are tiny ossific bodies adjacent to both the coronoid process and the olecranon process. No dislocation. There is evidence of prior hardware removal from the proximal ulna and the medial epicondyle of the humerus. There is a small elbow effusion. There are minimal arthritic changes. There is no soft tissue hematoma or radiopaque foreign body. Impression: 1. Tiny bone fragments adjacent to the coronoid process and the olecranon process are felt to most likely be chronic but acute avulsed bone fragments are not excluded. 2. There is an elbow effusion. This document has been electronically signed by: Tracey Garrett MD on 11/06/2024 16:44:34
--- NOTE | ~2024-11-06 | XR_ITS ---
CLINICAL HISTORY: pain, decreased AROM, prior UCL repair Exam: AP, lateral, and oblique views of the right elbow. Comparison: None. Findings: Bony alignment is anatomic. No acute fracture. No joint effusion. 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 Tiny ossification seen within the posterior joint measuring 2 x 1 mm in size. Impression: Mild degenerative change with tiny posterior intra-articular loose body. This document has been electronically signed by: Gonzalez Adame MD on 11/06/2024 15:21:26
[2024-11-06 14:44] VITALS: BP 140/97; PULSE 68; RESP 16; TEMP 36.9; O2SAT 98; BMI 27.9
--- NOTE | 2024-11-06 14:47 | ED_ITS ---
HPI - Extremity Problem General Chief complaint: Extremity Injury, Upper Stated complaint: R elbow pain Time Seen by Provider: 11/06/24 15:32 Source: patient Mode of arrival: ambulatory Limitations: no limitations History of Present Illness ED Provider: CELESTE DAWSON PA-C HPI Narrative: 39 year-old male PMHX of UCL repair surgery 2 years ago, right lateral epicondylitis, right wrist pain presenting with worsened right elbow pain x 1 day. Patient reports chronic pain in right elbow since injuring his UCL 2 years ago. Patient reports limited ROM of elbow. 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 Patient reports nerve damage from right elbow to right hand from his UCL surgery and that this numbness has increased x yesterday. He is concerned for hardware failure. Has tried ibuprofen without relief. He did not take anything today prior to presentation. Denies hx IVDU. Related Data Previous Rx's ?Medication ?Instructions ?Recorded ibuprofen 800 mg tablet 800 mg PO TID PRN pain #10 tabs 11/04/20 cyclobenzaprine 10 mg tablet 10 mg PO TID PRN muscle spasm #15 03/17/24 tabs amoxicillin 500 mg tablet 1,000 mg (2 x 500 mg) PO TID #60 08/30/24 tabs azithromycin 250 mg tablet 250 mg PO DAILY 4 days #4 tabs 08/30/24 ibuprofen 600 mg tablet 600 mg PO Q6H PRN pain #14 tabs 10/13/24 prednisone 20 mg tablet 60 mg (3 x 20 mg) PO DAILY 4 days 11/06/24 #12 tabs Allergies Allergy/AdvReac Type Severity Reaction Status Date / Time seasonal Allergy Unknown Hives Uncoded 11/06/24 14:48 Review of Systems Review of Systems: Yes all other systems are reviewed and are negative PMFSH Past Medical History Attestation statement: The following information was validated with the patient. 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 Skin: Warm, dry, intact. No rashes or lesions. Head: Normocephalic, atraumatic. EENT: Hearing is intact b/l. Conjunctiva clear. Sclera is anicteric. Cardiac: Chest wall symmetric. RRR. Lungs: Normal respiratory effort without accessory muscle use. CTA bilaterally. Back: No midline spinous or paraspinal tenderness. Ext: +no overlying skin changes noted to right elbow. Full ROM intact to right elbow. able to supinate and pronate w/o difficulty. No tenderness to palpation noted over olecranon. Somewhat decreased sensation to light touch along radial aspect of forarm, extending from elbow to second digit. Brisk cap refill. palpable radial and ulnar pulse intact. front clerk strength intact. Neuro: AOx3. Normal speech. ambulating with steady gait. Course Course Course Narrative: This is an RME performed by Gloria Durand CNP: Additional HPI, ROS, PE not included below will be deferred to primary provider. Patient is a 39-year-old male who presents emergency department for evaluation. He reports a few years ago he had UCL surgical repair with [facility] of the right elbow. Since yesterday he has been noticing the right elbow is locking, feels he is having a difficult time flexing greater than 90 degrees, has worsening of the numbness tingling cold sensation down the radial aspect of his forearm into the hand. Denies a known precipitating injury. He expresses concern for ?hardware failure? of the UCL repair, states a brace was inserted. Plan: XR Reevaluation(s) Reevaluation #1: X-ray right elbow showing mild degenerative changes with tiny posterior intra- articular loose body measuring 2 x [address] scan of right elbow shows tiny bone fragments adjacent to the coronoid process and the olecranon process, felt to be more likely chronic but acute avulsed bone fragments are not excluded. There is also a small elbow effusion. > given history of chronic repetitive motions, I feel these findings are more chronic in nature. he is vascularly inact distally. exam is quite benign. I did discuss imaging findings with my attending dr. magallon. plan to treat with 5 days of prednisone, anti-inflammatories. Patient placed in sling to rest the elbow. Advised to follow up with ortho. He states he would like a referral to his previous orthopedist ([facility]). I have also provided him with a referral to [facility] [place] [facility] for follow-up. Patient has remained stable throughout ED visit today. Discussed worrisome signs and symptoms and when to return to the ED. All questions answered at this time. Patient is agreeable with disposition and stable for discharge. Medications Administered Discontinued Medications Generic Name Dose Route Start Last Admin Trade Name Freq PRN Reason Stop Dose Admin Ibuprofen 800 mg 11/06/24 15:58 11/06/24 17:40 Ibuprofen 800 Mg Tablet PO 11/06/24 15:59 800 mg ONCE ONE Administration Prednisone 60 mg 11/06/24 17:39 11/06/24 17:44 Prednisone 20 Mg Tablet PO 11/06/24 17:40 60 mg ONCE ONE Administration Medical Decision Making Medical Decision Making MDM Narrative: 39 year-old male PMHX of UCL repair surgery 2 years ago, right lateral epicondylitis, right wrist pain presenting with worsened right elbow pain x 1 day. hypertensive, vitals are otherwise wnl. he is nontoxic appearing and in NAD. on exam of RUE, no overlying skin changes noted to right elbow. Full ROM intact to right elbow. able to supinate and pronate w/o difficulty. No tenderness to palpation noted over olecranon. Somewhat decreased sensation to light touch along radial aspect of forarm, extending from elbow to second digit. Brisk cap refill. palpable radial and ulnar pulse intact. front clerk strength intact. Differential diagnosis includes olecranon fracture, hardware failure, medial/lateral epicondylitis, msk strain/sprain, ligamentous injury Unlikely NV compromise, threat to limb, compartment syndrome. Plan for XR and CT of right elbow, motrin for pain control, and re-evaluation. Differential Diagnosis Differential Diagnoses: The differential diagnosis associated with the presentation includes As above Admission/Observation not indicated. Independent Interpretation I performed an independent interpretation of an: Plain X-Ray and CT Scan Interpretation: X-ray right elbow without obvious fracture CT right elbow with small bone fragments noted around coronoid process, no notable fracture Radiology Impression Discussion of test interpretation with radiology: I have reviewed the radiologist's reading. Radiologist Impression: Procedure(s): CT elbow RT wo IV con Accession Number(s): [id number] cc: Physician,Unknown ; Celeste Dawson~ Report Number: [id number]: Total DLP = 140.00 mGy-cm CLINICAL HISTORY: right elbow pain,locking CT right elbow without contrast Comparison: 11/06/2024 Findings: There are tiny ossific bodies adjacent to both the coronoid process and the olecranon process. No dislocation. There is evidence of prior hardware removal from the proximal ulna and the medial epicondyle of the humerus. There is a small elbow effusion. There are minimal arthritic changes. There is no soft tissue hematoma or radiopaque foreign body. Impression: 1. Tiny bone fragments adjacent to the coronoid process and the olecranon process are felt to most likely be chronic but acute avulsed bone fragments are not excluded. 2. There is an elbow effusion. Procedure(s): XR elbow RT 2V Accession Number(s): [id number] cc: Reyna Durand CNP; Physician,Unknown ~ CLINICAL HISTORY: pain, decreased AROM, prior UCL repair Exam: AP, lateral, and oblique views of the right elbow. Comparison: None. Findings: Bony alignment is anatomic. No acute fracture. No joint effusion. 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 Tiny ossification seen within the posterior joint measuring 2 x 1 mm in size. Impression: Mild degenerative change with tiny posterior intra-articular loose body. External Record Review External record reviewed: Inpatient record, Office record and Outpatient record Prescription Management I considered prescription management with: Pain Medication and Other (Prednisone) Social Determinants Patient?s care significantly limited by Social Determinants of Health including: Other Social Determinant of Health Procedures Orthopedic Splinting/Casting Injury #1: Side: right Upper Extremity Injury Location: elbow Upper Extremity Immobilizer: sling/shoulder immobilizer Critical Care Time Critical Care Time Critical Care Time: No Discharge Plan Discharge Clinical Impression: Medial epicondylitis, Avulsion injury Patient Disposition: Home, Self-Care Instructions: Prednisone (By mouth), How to Use a Sling (ED) Additional Instructions: You were evaluated in the ED today for left elbow pain. Your x-ray and CT scans show tiny bone fragments both within the elbow joint and around the elbow, concerning for chronic avulsion injuries. This can be caused by repetitive motions. There is also a small joint effusion (fluid). This is a results of inflammatory changes. You were treated with Motrin and 1st dose of prednisone in the ED today. I have sent 4 more days of prednisone to your pharmacy. This will help with inflammation/pain. I also recommend you stay on top of Tylenol and Motrin at home for pain control. I recommend you take 600mg ibuprofen every 6 hours or Tylenol 650mg every 6 hours as needed for pain. If needed, you can alternate these medications so that you take one medication every 3 hours. For example, at noon take ibuprofen, then at 3pm take Tylenol, then at 6pm take ibuprofen. I have placed your right elbow in a sling today. This will help with resting the elbow. I do recommend you remove the arm 2 to 3 times a day just to make sure you maintain mobility. You need to follow up with the desktop publishing specialist. You have been provided with a referral. Call them to establish care. They will not call you. Return with any new or worsening symptoms. In the case of an emergency call 911. [facility] [place] [place] [facility]: [phone] [facility]: [phone] Prescriptions: New prednisone 20 mg tablet 60 mg PO DAILY 4 Days Qty: 12 0RF No Action ibuprofen 800 mg tablet 800 mg PO TID PRN (Reason: pain) Qty: 10 0RF cyclobenzaprine 10 mg tablet 10 mg PO TID PRN (Reason: muscle spasm) Qty: 15 0RF amoxicillin 500 mg tablet 1,000 mg PO TID Qty: 60 0RF azithromycin 250 mg tablet 250 mg PO DAILY 4 Days Qty: 4 0RF Rx Instructions: start on day 2 of therapy ibuprofen 600 mg tablet 600 mg PO Q6H PRN (Reason: pain) Qty: 14 0RF Referrals: [facility] [place] [place] [facility] [Provider Group] - 3 days (Tiny bone fragments adjacent to the coronoid process and the olecranon process are felt to most likely be chronic but acute avulsed bone fragments are not excluded.) Stand Alone Forms: Work/School Release Print Language: Albanian
[2024-11-06] MEDS: Ibuprofen 800 MG TABLET PO (17:40)
[2024-11-06 17:42] VITALS: BP 136/88; PULSE 66; RESP 10; TEMP 36.7; O2SAT 98
[2024-11-06] MEDS: predniSONE 20 MG TABLET 60 MG PO (17:44)
--- NOTE | 2024-11-06 18:15 | PC.NURSE ---
patient a&ox3, medicated for pain per order, sling applied to rt arm, pt to discharge home with f/u with ortho
[2024-11-06 18:16] VITALS: BP 136/88; PULSE 66; RESP 16; TEMP 36.7; O2SAT 98
== END 2024-11-06 18:16 | disposition home or self-care (01) ==
PROVIDERS: Emergency Provider Emergency Medicine Emergency Medical Services
DX: M77.01 Medial epicondylitis, right elbow (principal); M25.531 Pain in right wrist
CPT/HCPCS: 73070; 73200; 99284

== ENCOUNTER → 2024-11-06 14:51 | Outpatient (BNV) | payer BC, SELFPAY | PROVIDERS: Emergency Provider Emergency Medicine Emergency Medical Services; Visit Provider Radiology Diagnostic Radiology | DX: H92.01 Otalgia, right ear (principal) | CPT/HCPCS: 73070; 73200 ==